=== PATIENT | female | born 1945 | race Caucasian/White ===

== ENCOUNTER → 2016-03-25 | Outpatient (REF) | payer MEDICARE, OTHER ==
[~2016-03-25] MED LIST: /ADVA50050; /CLOT10TR; /LORA10TA PO; /PANT40TA PO; /TIOT18INH INH; ACET-654 PO; ACET50TA PO; ACET65TA OR; ALPR0.25 PO; AMOX500T PO; ASPI1TAB5 PO; ASPI81TA83 OR; ATOR1TAB19 PO; ATRO0.06 INH; AUGM875T27 PO; BACITAB3 PO; CEFT500T; CEFT500T PO; COLA100C PO; COUM2.5T11 PO; COZA100T2 PO; COZA50TA18 OR; DALI1TAB2 PO; DOXY75CA3 PO; FERR324T2 PO; FURO20TA2 PO; HEPA10PFSY IV; IPRA2IN AD; IPRA2IN INH; KLOR1TAB69 PO; LASI20TA PO; LASI40TA PO; LEVA12INH INH; LEVA31IN INH; LEVA500T OR; LEVO750T PO; LIPI10TA PO; LORA10TA2 PO; LOSA50TA20 PO; MAALSUS OR; MAJIC MOUTH WASH PO; MILKSUS PO; MIRA255PW PO; MIRA3350 PO; MUCI600T34 PO; MUPI2OI EXT; NICO21DI26 TD; NICO21DI4 TD; NORV5TAB; NYST50SS SS; PANT40TA2 PO; POTA20VL PO; POTASSIUM PO; PRED10TA PO; PRED10TA2; PRED10TA2 PO; PRED1TAB32 PO; PRED20TA PO; PREV15CA; PROTPAK PO; ROBISYP3; SALI0.9I2 IV; SENO8.6T2 PO; SENO8.6T9 PO; SPIR1CAP INH; SPIRIVA INH; SYMB16INH INH; SYMB80AE INH; SYMBICORT INH; TRAM50TA2 PO; TRAMADOL PO; TRAZO50TA PO; VANC10005 IV; VANC1CAP6 PO; VENL37CA PO; VITAMIN D PO; XANA0.25 OR; XANA0.25 PO; XOPE1.252; XOPE1.252 IN; XOPE1.252 INH; XOPEAER INH; ZITH250T; ZITH250T PO; ZOFR20TA PO; [UNRECOGNIZED DRUG - CODE] INH
[2016-03-25 20:47] LABS: MEAN CORPUSCULAR HEMOGLOBIN 27.1 pg (27.0-33.0); MEAN CORPUSCULAR HGB CONC 31.4 g/dl (32.0-36.5); MEAN CORPUSCULAR VOLUME 86.2 fl (80.0-96.0); RED CELL DISTRIBUTION WIDTH 15.4 % (11.5-14.5); WHITE BLOOD COUNT 7.9 K/mm3 (4.0-10.0)
[2016-03-25 20:49] LABS: ALBUMIN 3.6 GM/DL (3.2-5.2); ALKALINE PHOSPHATASE 92 U/L (45-117); ALT/SGPT 13 U/L (12-78); ANION GAP 4 MEQ/L (8-16); AST/SGOT 15 U/L (15-37); BILIRUBIN,TOTAL 0.7 MG/DL (0.2-1.0); BLOOD UREA NITROGEN 18 MG/DL (7-18); CALCIUM LEVEL 9.2 MG/DL (8.8-10.2); CARBON DIOXIDE LEVEL 35 MEQ/L (21-32); CHLORIDE LEVEL 103 MEQ/L (98-107); CHOLESTEROL LEVEL 211 MG/DL (<200); CREATININE FOR GFR 0.95 MG/DL (0.55-1.02); GLOMERULAR FILTRATION RATE > 60.0 (>45); GLUCOSE, FASTING 84 MG/DL (80-110); POTASSIUM SERUM 4.3 MEQ/L (3.5-5.1); SODIUM LEVEL 142 MEQ/L (136-145); TOTAL PROTEIN 7.6 GM/DL (6.4-8.2); TRIGLYCERIDES LEVEL 81 MG/DL (<150)
== END ==
LOC: M SFHCLERA 16:36
PROVIDERS: ATTEND Physician Assistant
DX: J44.9 Chronic obstructive pulmonary disease, unspecified (principal); I10 Essential (primary) hypertension; E78.5 Hyperlipidemia, unspecified; R63.4 Abnormal weight loss
CPT/HCPCS: 80053; 80061; 84134; 84443; 85027; 93005; G0463

== ENCOUNTER → 2016-09-12 | Outpatient (CLI) | payer MEDICARE, BC, OTHER ==
[~2016-09-12] MED LIST changes: -ACET-654 PO; +ACET1TAB17 PO; +BACITAB PO; -BACITAB3 PO; -COLA100C PO; +COLA100C5 PO; -COUM2.5T11 PO; +COUM2.5T17 PO; +LEVAINH INH; +MUCI600T37 PO; -SENO8.6T2 PO; +SENO8.6T5 PO
--- NOTE | 2016-09-12 17:03 | REP ---
HISTORY: History of malignant neoplasm of the urinary tract. COMPARISON: 12/03/2015 Once again, the lung bustillos are hyperexpanded with basilar fibrotic changes, status quo. The heart is not enlarged. The pleural angles are again seen to be blunted chronically. Bolus emphysematous changes seen particularly in the lung apical regions. Full sized pulmonary arteries status quo. No acute patchy or parenchymal opacities or pleural effusions seen to have developed since the last exam. IMPRESSION: Stable appearing chronic changes. It should be stated that there are multiple lower thoracic vertebral body compression fractures of various grades, unchanged. Signed by Blake Ward DO 09/12/2016 07:09 P
[2016-09-12 20:17] LABS: BASO % 0.4 % (0.0-1.0); EOS # 0.2 K/mm3 (0.0-0.50); EOS % 2.4 % (0.0-3.0); LARGE UNSTAINED CELL # 0.1 K/mm3 (0.0-0.4); LARGE UNSTAINED CELL % 1.9 % (0.0-4.0); LYMPH # 2.1 K/mm3 (1.5-4.5); LYMPH % 29.7 % (24.0-44.0); MEAN CORPUSCULAR HEMOGLOBIN 28.2 pg (27.0-33.0); MEAN CORPUSCULAR HGB CONC 31.9 g/dl (32.0-36.5); MEAN CORPUSCULAR VOLUME 88.3 fl (80.0-96.0); MONO # 0.4 K/mm3 (0.0-0.8); MONO % 5.9 % (0.0-5.0); NEUTROPHILS # 4.3 K/mm3 (1.8-7.7); NEUTROPHILS % 59.7 % (36.0-66.0); PLATELET COUNT, AUTOMATED 370 k/mm3 (150-450); RED CELL DISTRIBUTION WIDTH 14.3 % (11.5-14.5); WHITE BLOOD COUNT 7.2 K/mm3 (4.0-10.0)
[2016-09-12 20:19] LABS: ALBUMIN 3.4 GM/DL (3.2-5.2); ALBUMIN/GLOBULIN RATIO 0.97 (1.00-1.93); BILIRUBIN,TOTAL 0.4 MG/DL (0.2-1.0); CALCIUM LEVEL 9.3 MG/DL (8.8-10.2); GLOMERULAR FILTRATION RATE 58.5 (>45); POTASSIUM SERUM 4.1 MEQ/L (3.5-5.1); TOTAL PROTEIN 6.9 GM/DL (6.4-8.2)
== END ==
LOC: M LRY 15:33
PROVIDERS: ATTEND Urology
DX: C67.1 Malignant neoplasm of dome of bladder (principal)

== ENCOUNTER → 2017-01-20 | Outpatient (CLI) | payer MEDICARE, BC, OTHER ==
--- NOTE | 2017-01-20 12:17 | REP ---
LEFT SHOULDER: Four views. History: Pain in the left shoulder. Prior surgery. Comparison left shoulder radiographs are from November 20/2012. FINDINGS: The patient is status post cervical spine fusion plating. The left glenohumeral and acromioclavicular joints are normally aligned. There is some subcortical cyst formation in the humeral head visible today. This is radiographically new finding. There is diffuse osteopenia. Periarticular soft tissues are unremarkable. No erosive changes seen. No evidence of subluxation. IMPRESSION: Diffuse osteopenia. Subcortical cyst formation in the humeral head. No acute bony abnormality. Signed by Juliocesar Rodriguez MD 01/20/2017 02:44 P
== END ==
LOC: M LRY 11:18
PROVIDERS: ATTEND Physician Assistant
DX: M85.812 Other specified disorders of bone density and structure, left shoulder (principal); M85.412 Solitary bone cyst, left shoulder; Z98.1 Arthrodesis status

== ENCOUNTER → 2017-03-02 | Outpatient (CLI) | payer MEDICARE, BC, OTHER | LOC: M LRY 15:10 | DX: J84.89 Other specified interstitial pulmonary diseases (principal); R50.9 Fever, unspecified | CPT/HCPCS: 71046; 80053 ==

== ENCOUNTER → 2017-03-02 | Outpatient (REF) | payer MEDICARE, OTHER ==
[2017-03-02 20:47] LABS: BASO # 0.1 10^3/uL (0.0-0.2); BASO % 0.3 % (0.0-1.0); EOS # 0.1 10^3/uL (0.0-0.50); EOS % 0.3 % (0.0-3.0); HEMATOCRIT 38.5 % (36.0-47.0); IMMATURE GRANULOCYTE # 0.1 10^3/uL (0-0); IMMATURE GRANULOCYTE % 0.6 % (0-0); LYMPH # 1.6 10^3/uL (1.5-4.5); LYMPH % 6.7 % (24.0-44.0); MEAN CORPUSCULAR HEMOGLOBIN 27.6 pg (27.0-33.0); MEAN CORPUSCULAR HGB CONC 31.2 g/dl (32.0-36.5); MEAN CORPUSCULAR VOLUME 88.5 fl (80.0-96.0); MONO # 1.3 10^3/uL (0.0-0.8); MONO % 5.5 % (0.0-5.0); NEUTROPHILS # 20.2 10^3/uL (1.8-7.7); NEUTROPHILS % 86.6 % (36.0-66.0); PLATELET COUNT, AUTOMATED 355 10^3/uL (150-450); RED BLOOD COUNT 4.35 10^6/uL (4.00-5.40); RED CELL DISTRIBUTION WIDTH 13.8 % (11.5-14.5); WHITE BLOOD COUNT 23.3 10^3/uL (4.0-10.0)
[2017-03-02 21:10] LABS: ALBUMIN 3.3 GM/DL (3.2-5.2); ALBUMIN/GLOBULIN RATIO 0.87 (1.00-1.93); ALKALINE PHOSPHATASE 137 U/L (45-117); ALT/SGPT 17 U/L (12-78); ANION GAP 7 MEQ/L (8-16); AST/SGOT 13 U/L (7-37); BILIRUBIN,TOTAL 0.6 MG/DL (0.2-1.0); BLOOD UREA NITROGEN 17 MG/DL (7-18); CARBON DIOXIDE LEVEL 31 MEQ/L (21-32); CHLORIDE LEVEL 101 MEQ/L (98-107); CREATININE FOR GFR 0.99 MG/DL (0.55-1.02); GLUCOSE, FASTING 105 MG/DL (83-110); POTASSIUM SERUM 4.4 MEQ/L (3.5-5.1); SODIUM LEVEL 139 MEQ/L (136-145); TOTAL PROTEIN 7.1 GM/DL (6.4-8.2)
== END ==
LOC: M SFHCLERA 15:18
DX: R50.9 Fever, unspecified (principal)
CPT/HCPCS: 80053

== ENCOUNTER 2017-06-30 17:35 | Observation (INO) | payer MEDICARE, BC, OTHER ==
[2017-06-30] MEDS: NS 1,000 ML IV ×4 (18:08→21:19)
[2017-06-30] MEDS: NS 500 ML IV ×2 (18:34)
[2017-06-30 18:35] LABS: BASO % 0.4 % (0.0-1.0); EOS # 0.2 10^3/uL (0.0-0.50); EOS % 1.8 % (0.0-3.0); HEMATOCRIT 39.4 % (36.0-47.0); IMMATURE GRANULOCYTE % 0.4 % (0-3.0); LYMPH # 2.6 10^3/uL (1.5-4.5); LYMPH % 30.2 % (24.0-44.0); MEAN CORPUSCULAR HEMOGLOBIN 27.3 pg (27.0-33.0); MEAN CORPUSCULAR HGB CONC 30.5 g/dl (32.0-36.5); MEAN CORPUSCULAR VOLUME 89.5 fl (80.0-96.0); MONO # 0.8 10^3/uL (0.0-0.8); MONO % 9.3 % (0.0-5.0); NEUTROPHILS # 4.9 10^3/uL (1.8-7.7); NEUTROPHILS % 57.9 % (36.0-66.0); PLATELET COUNT, AUTOMATED 246 10^3/uL (150-450); RED CELL DISTRIBUTION WIDTH 14.9 % (11.5-14.5); WHITE BLOOD COUNT 8.5 10^3/uL (4.0-10.0)
[2017-06-30] MEDS: fentaNYL 100 MCG/2 ML INJECTION (J3010) IV ×4 (18:35→20:00)
[2017-06-30 18:54] LABS: LACTIC ACID SEPSIS PROTOCOL 0.9 MMOL/L (0.4-2.0)
[2017-06-30 18:56] LABS: ALBUMIN 3.5 GM/DL (3.2-5.2); ALBUMIN/GLOBULIN RATIO 1.13 (1.00-1.93); ALKALINE PHOSPHATASE 83 U/L (45-117); ALT/SGPT 15 U/L (12-78); ANION GAP 5 MEQ/L (8-16); AST/SGOT 16 U/L (7-37); BILIRUBIN,DIRECT 0.1 MG/DL (0.0-0.2); BILIRUBIN,TOTAL 0.4 MG/DL (0.2-1.0); BLOOD UREA NITROGEN 14 MG/DL (7-18); CALCIUM LEVEL 8.5 MG/DL (8.8-10.2); CARBON DIOXIDE LEVEL 33 MEQ/L (21-32); CHLORIDE LEVEL 102 MEQ/L (98-107); CPK CREATINE PHOSPHOKINASE 56 U/L (26-192); CREATININE FOR GFR 0.88 MG/DL (0.55-1.30); GLOMERULAR FILTRATION RATE > 60.0 (>39); GLUCOSE, FASTING 106 MG/DL (70-100); LIPASE 479 U/L (73-393); POTASSIUM SERUM 4.2 MEQ/L (3.5-5.1); SODIUM LEVEL 140 MEQ/L (136-145); TOTAL PROTEIN 6.6 GM/DL (6.4-8.2); TROPONIN I < 0.02 NG/ML (< 0.10)
[2017-06-30 18:57] LABS: CK-MB VALUE MASS 1.9 NG/ML (<3.6); MB/CK RELATIVE INDEX 3.39 (< OR =4)
[2017-06-30] MEDS: ONDANSETRON 4MG/2ML VIAL (J2405) IV ×4 (19:04→22:17)
[2017-06-30] MEDS: SYMBICORT 160/4.5MCG INHALER 6GM INH ×2 (21:00)
[2017-06-30] MEDS ORDERED: HYDROMORPHONE HCL 0.5 MG/ 0.5 ML SYRINGE (J1170 PER 1) IV ×2 (21:00)
[2017-06-30] MEDS ORDERED: LOSARTAN 50 MG TAB PO ×2 (21:00)
[2017-06-30] MEDS ORDERED: traMADol 50 MG TAB PO ×2 (21:00)
[2017-06-30] MEDS ORDERED: ALPRAZolam 0.25 MG TAB PO ×2 (21:00)
[2017-06-30] MEDS ORDERED: DOCUSATE SODIUM 100 MG CAP PO ×2 (21:00)
[2017-06-30] MEDS ORDERED: HYDROmorphone HCL 1 MG/ML SYRINGE (J1170) As Ordered ×2 (22:54)
[2017-06-30] MEDS: HYDROMORPHONE HCL 0.5 MG/ 0.5 ML SYRINGE (J1170 PER 1) IV ×2 (22:58)
[2017-07-01] MEDS ORDERED: METOCLOPRAMIDE INJ 10MG/2ML VIAL (J2765) As Ordered ×2 (01:45)
[2017-07-01] MEDS: METOCLOPRAMIDE INJ 10MG/2ML VIAL (J2765) IV ×2 (01:50)
[2017-07-01] MEDS ORDERED: HYDROmorphone HCL 1 MG/ML SYRINGE (J1170) As Ordered ×2 (02:05)
[2017-07-01] MEDS: HYDROMORPHONE HCL 0.5 MG/ 0.5 ML SYRINGE (J1170 PER 1) IV ×4 (02:08→12:44)
[2017-07-01 06:30] LABS: BASO # 0.1 10^3/uL (0.0-0.2); BASO % 0.4 % (0.0-1.0); EOS % 0.4 % (0.0-3.0); HEMATOCRIT 37.3 % (36.0-47.0); HEMOGLOBIN 11.2 g/dl (12.0-15.5); IMMATURE GRANULOCYTE % 1.3 % (0-3.0); LYMPH # 2.2 10^3/uL (1.5-4.5); LYMPH % 20.1 % (24.0-44.0); MEAN CORPUSCULAR HEMOGLOBIN 27.3 pg (27.0-33.0); MEAN CORPUSCULAR VOLUME 90.8 fl (80.0-96.0); MONO # 0.9 10^3/uL (0.0-0.8); MONO % 8.3 % (0.0-5.0); NEUTROPHILS # 7.8 10^3/uL (1.8-7.7); NEUTROPHILS % 69.5 % (36.0-66.0); PLATELET COUNT, AUTOMATED 231 10^3/uL (150-450); RED BLOOD COUNT 4.11 10^6/uL (4.00-5.40); WHITE BLOOD COUNT 11.2 10^3/uL (4.0-10.0)
[2017-07-01] MEDS: NS 1,000 ML IV ×6 (06:35→20:13)
[2017-07-01 07:04] LABS: ALBUMIN 2.9 GM/DL (3.2-5.2); ALBUMIN/GLOBULIN RATIO 0.91 (1.00-1.93); ALKALINE PHOSPHATASE 118 U/L (45-117); ALT/SGPT 48 U/L (12-78); ANION GAP 2 MEQ/L (8-16); AST/SGOT 103 U/L (7-37); BILIRUBIN,TOTAL 0.4 MG/DL (0.2-1.0); BLOOD UREA NITROGEN 10 MG/DL (7-18); CARBON DIOXIDE LEVEL 33 MEQ/L (21-32); CHLORIDE LEVEL 104 MEQ/L (98-107); CREATININE FOR GFR 0.81 MG/DL (0.55-1.30); GLOMERULAR FILTRATION RATE > 60.0 (>39); GLUCOSE, FASTING 84 MG/DL (70-100); LIPASE 1280 U/L (73-393); MAGNESIUM LEVEL 1.9 MG/DL (1.8-2.4); POTASSIUM SERUM 4.6 MEQ/L (3.5-5.1); SODIUM LEVEL 139 MEQ/L (136-145); TOTAL PROTEIN 6.1 GM/DL (6.4-8.2)
[2017-07-01] MEDS ORDERED: HYDROmorphone HCL 1 MG/ML SYRINGE (J1170) IV ×2 (07:24)
[2017-07-01] MEDS: HYDROmorphone HCL 1 MG/ML SYRINGE (J1170) IV ×2 (07:29)
[2017-07-01] MEDS: NS 500 ML IV ×2 (08:00)
[2017-07-01] MEDS: SYMBICORT 160/4.5MCG INHALER 6GM INH ×4 (08:07→19:47)
[2017-07-01] MEDS: TIOTROPIUM INHALER/CAPSULE (SPIRIVA) INH ×2 (08:07)
[2017-07-01 08:11] LABS: NT-PRO BNP 1500 PG/ML (<125)
[2017-07-01 08:41] LABS: INR 0.95; PROTHROMBIN TIME 12.8 SECONDS (12.4-14.5)
[2017-07-01 08:43] LABS: LACTIC ACID SEPSIS PROTOCOL 0.7 MMOL/L (0.4-2.0)
[2017-07-01] MEDS: ENOXAPARIN 40 MG/0.4 ML SYRINGE (J1650) SC ×2 (09:00)
[2017-07-01] MEDS: LORATADINE 10 MG TAB PO ×2 (09:00)
[2017-07-01] MEDS: PANTOPRAZOLE 40MG INJ (PROTONIX) (C9113) IV ×4 (09:00→20:13)
[2017-07-01] MEDS: ONDANSETRON 4MG/2ML VIAL (J2405) IV ×2 (12:40)
[2017-07-01] MEDS ORDERED: HYDROMORPHONE HCL 0.5 MG/ 0.5 ML SYRINGE (J1170 PER 1) IV ×2 (12:45)
[2017-07-01] MEDS: NORCO, ANEXSIA 5/325MG TABLET (HYDROcodone/ACETAMINOPHEN) PO ×2 (15:36)
[2017-07-02] MEDS: NORCO, ANEXSIA 5/325MG TABLET (HYDROcodone/ACETAMINOPHEN) PO ×8 (02:10→18:13)
[2017-07-02] MEDS: HYDROMORPHONE HCL 0.5 MG/ 0.5 ML SYRINGE (J1170 PER 1) IV ×4 (02:19→07:28)
[2017-07-02] MEDS: METOCLOPRAMIDE INJ 10MG/2ML VIAL (J2765) IV ×8 (02:25→19:41)
[2017-07-02] MEDS: ALBUTEROL 90 MCG/ACT 8GM HFA INHALER INH ×2 (03:12)
[2017-07-02] MEDS: ACETAMINOPHEN TAB 650MG DOSE (2X325MG) PO ×2 (03:47)
[2017-07-02 06:28] LABS: BASO % 0.2 % (0.0-1.0); EOS % 0.4 % (0.0-3.0); HEMATOCRIT 33.3 % (36.0-47.0); HEMOGLOBIN 10.1 g/dl (12.0-15.5); IMMATURE GRANULOCYTE % 1.6 % (0-3.0); MEAN CORPUSCULAR HEMOGLOBIN 27.7 pg (27.0-33.0); MEAN CORPUSCULAR HGB CONC 30.3 g/dl (32.0-36.5); MEAN CORPUSCULAR VOLUME 91.5 fl (80.0-96.0); MONO # 0.7 10^3/uL (0.0-0.8); MONO % 8.3 % (0.0-5.0); NEUTROPHILS # 5.4 10^3/uL (1.8-7.7); NEUTROPHILS % 65.5 % (36.0-66.0); PLATELET COUNT, AUTOMATED 200 10^3/uL (150-450); RED BLOOD COUNT 3.64 10^6/uL (4.00-5.40); WHITE BLOOD COUNT 8.3 10^3/uL (4.0-10.0)
[2017-07-02 06:42] LABS: ALBUMIN 2.5 GM/DL (3.2-5.2); ALBUMIN/GLOBULIN RATIO 0.83 (1.00-1.93); ALKALINE PHOSPHATASE 121 U/L (45-117); ALT/SGPT 31 U/L (12-78); ANION GAP 8 MEQ/L (8-16); AST/SGOT 41 U/L (7-37); BILIRUBIN,TOTAL 0.4 MG/DL (0.2-1.0); BLOOD UREA NITROGEN 10 MG/DL (7-18); CALCIUM LEVEL 7.9 MG/DL (8.8-10.2); CARBON DIOXIDE LEVEL 28 MEQ/L (21-32); CHLORIDE LEVEL 106 MEQ/L (98-107); CREATININE FOR GFR 0.73 MG/DL (0.55-1.30); GLOMERULAR FILTRATION RATE > 60.0 (>39); GLUCOSE, FASTING 56 MG/DL (70-100); LIPASE 56 U/L (73-393); MAGNESIUM LEVEL 1.7 MG/DL (1.8-2.4); POTASSIUM SERUM 4.2 MEQ/L (3.5-5.1); SODIUM LEVEL 142 MEQ/L (136-145); TOTAL PROTEIN 5.5 GM/DL (6.4-8.2)
[2017-07-02] MEDS: LORATADINE 10 MG TAB PO ×2 (07:50)
[2017-07-02] MEDS: ENOXAPARIN 40 MG/0.4 ML SYRINGE (J1650) SC ×2 (07:50)
[2017-07-02] MEDS: PANTOPRAZOLE 40MG INJ (PROTONIX) (C9113) IV ×4 (07:50→20:11)
[2017-07-02] MEDS: MAG SULF 1GM/100ML (MAG RUN) 1 GM in APPROPRIATE DILUENT 1 EA IV (07:50)
[2017-07-02] MEDS: ONDANSETRON 4MG/2ML VIAL (J2405) IV ×2 (07:50)
[2017-07-02] MEDS: SYMBICORT 160/4.5MCG INHALER 6GM INH ×4 (07:54→20:43)
[2017-07-02 09:11] LABS: BEDSIDE GLUCOSE 95 MG/DL (83-110)
[2017-07-02] MEDS ORDERED: ACETAMINOPHEN 500 MG TAB PO ×2 (11:15)
[2017-07-02] MEDS: KETOROLAC 30 MG/ML VIAL (J1885) IV ×4 (11:45→20:13)
[2017-07-02] MEDS: TIOTROPIUM INHALER/CAPSULE (SPIRIVA) INH ×2 (13:59)
[2017-07-02] MEDS: diphenhydrAMINE INJ 50MG/ML VIAL (J1200) IV ×2 (15:40)
[2017-07-02] MEDS: NS 1,000 ML IV ×2 (18:15)
[2017-07-03] MEDS: KETOROLAC 30 MG/ML VIAL (J1885) IV ×6 (03:31→19:40)
[2017-07-03] MEDS: METOCLOPRAMIDE INJ 10MG/2ML VIAL (J2765) IV ×8 (03:31→20:54)
[2017-07-03] MEDS: NORCO, ANEXSIA 5/325MG TABLET (HYDROcodone/ACETAMINOPHEN) PO ×6 (04:51→20:54)
[2017-07-03 06:20] LABS: BASO % 0.5 % (0.0-1.0); EOS # 0.2 10^3/uL (0.0-0.50); EOS % 3.9 % (0.0-3.0); HEMATOCRIT 32.4 % (36.0-47.0); IMMATURE GRANULOCYTE % 0.7 % (0-3.0); LYMPH # 1.6 10^3/uL (1.5-4.5); LYMPH % 26.1 % (24.0-44.0); MEAN CORPUSCULAR HEMOGLOBIN 27.5 pg (27.0-33.0); MEAN CORPUSCULAR HGB CONC 30.9 g/dl (32.0-36.5); MEAN CORPUSCULAR VOLUME 89.3 fl (80.0-96.0); MONO # 0.7 10^3/uL (0.0-0.8); MONO % 11.7 % (0.0-5.0); NEUTROPHILS # 3.5 10^3/uL (1.8-7.7); NEUTROPHILS % 57.1 % (36.0-66.0); PLATELET COUNT, AUTOMATED 196 10^3/uL (150-450); RED BLOOD COUNT 3.63 10^6/uL (4.00-5.40); WHITE BLOOD COUNT 6.1 10^3/uL (4.0-10.0)
[2017-07-03 06:45] LABS: ALBUMIN 2.3 GM/DL (3.2-5.2); ALBUMIN/GLOBULIN RATIO 0.77 (1.00-1.93); ALKALINE PHOSPHATASE 110 U/L (45-117); ALT/SGPT 26 U/L (12-78); ANION GAP 2 MEQ/L (8-16); AST/SGOT 22 U/L (7-37); BILIRUBIN,TOTAL 0.6 MG/DL (0.2-1.0); BLOOD UREA NITROGEN 7 MG/DL (7-18); CARBON DIOXIDE LEVEL 33 MEQ/L (21-32); CHLORIDE LEVEL 109 MEQ/L (98-107); CREATININE FOR GFR 0.82 MG/DL (0.55-1.30); GLOMERULAR FILTRATION RATE > 60.0 (>39); GLUCOSE, FASTING 82 MG/DL (70-100); LIPASE 70 U/L (73-393); MAGNESIUM LEVEL 1.7 MG/DL (1.8-2.4); POTASSIUM SERUM 3.9 MEQ/L (3.5-5.1); SODIUM LEVEL 144 MEQ/L (136-145); TOTAL PROTEIN 5.3 GM/DL (6.4-8.2)
[2017-07-03] MEDS: NS 1,000 ML IV ×2 (07:30)
[2017-07-03] MEDS: MAG SULF 1GM/100ML (MAG RUN) 1 GM in APPROPRIATE DILUENT 1 EA IV ×2 (07:32→08:47)
[2017-07-03] MEDS: SYMBICORT 160/4.5MCG INHALER 6GM INH ×4 (08:11→20:42)
[2017-07-03] MEDS: TIOTROPIUM INHALER/CAPSULE (SPIRIVA) INH ×2 (08:11)
[2017-07-03] MEDS: ENOXAPARIN 40 MG/0.4 ML SYRINGE (J1650) SC ×2 (08:48)
[2017-07-03] MEDS: LORATADINE 10 MG TAB PO ×2 (08:48)
[2017-07-03] MEDS: PANTOPRAZOLE 40MG INJ (PROTONIX) (C9113) IV ×4 (08:49→20:54)
[2017-07-03] MEDS: predniSONE 20 MG TAB PO ×2 (12:17)
[2017-07-03] MEDS: AMITRIPTYLINE 25 MG TAB PO ×2 (20:54)
[2017-07-04 06:10] LABS: BASO % 0.2 % (0.0-1.0); HEMATOCRIT 32.9 % (36.0-47.0); HEMOGLOBIN 10.3 g/dl (12.0-15.5); IMMATURE GRANULOCYTE % 0.7 % (0-3.0); LYMPH # 1.3 10^3/uL (1.5-4.5); LYMPH % 32.7 % (24.0-44.0); MEAN CORPUSCULAR HEMOGLOBIN 27.3 pg (27.0-33.0); MEAN CORPUSCULAR HGB CONC 31.3 g/dl (32.0-36.5); MEAN CORPUSCULAR VOLUME 87.3 fl (80.0-96.0); MONO # 0.4 10^3/uL (0.0-0.8); MONO % 10.1 % (0.0-5.0); NEUTROPHILS # 2.3 10^3/uL (1.8-7.7); NEUTROPHILS % 56.3 % (36.0-66.0); PLATELET COUNT, AUTOMATED 203 10^3/uL (150-450); RED BLOOD COUNT 3.77 10^6/uL (4.00-5.40); RED CELL DISTRIBUTION WIDTH 14.8 % (11.5-14.5)
[2017-07-04 06:35] LABS: ALBUMIN 2.6 GM/DL (3.2-5.2); ALBUMIN/GLOBULIN RATIO 0.81 (1.00-1.93); ALKALINE PHOSPHATASE 116 U/L (45-117); ALT/SGPT 23 U/L (12-78); ANION GAP 3 MEQ/L (8-16); AST/SGOT 17 U/L (7-37); BILIRUBIN,TOTAL 0.4 MG/DL (0.2-1.0); BLOOD UREA NITROGEN 6 MG/DL (7-18); CALCIUM LEVEL 8.2 MG/DL (8.8-10.2); CARBON DIOXIDE LEVEL 36 MEQ/L (21-32); CHLORIDE LEVEL 104 MEQ/L (98-107); CREATININE FOR GFR 0.74 MG/DL (0.55-1.30); GLOMERULAR FILTRATION RATE > 60.0 (>39); GLUCOSE, FASTING 101 MG/DL (70-100); LIPASE 54 U/L (73-393); POTASSIUM SERUM 4.2 MEQ/L (3.5-5.1); SODIUM LEVEL 143 MEQ/L (136-145); TOTAL PROTEIN 5.8 GM/DL (6.4-8.2)
[2017-07-04] MEDS: ALBUTEROL 90 MCG/ACT 8GM HFA INHALER INH ×2 (08:04)
[2017-07-04] MEDS: TIOTROPIUM INHALER/CAPSULE (SPIRIVA) INH ×2 (08:04)
[2017-07-04] MEDS: SYMBICORT 160/4.5MCG INHALER 6GM INH ×2 (08:04)
[2017-07-04] MEDS: NORCO, ANEXSIA 5/325MG TABLET (HYDROcodone/ACETAMINOPHEN) PO ×2 (08:31)
[2017-07-04] MEDS: predniSONE 20 MG TAB PO ×2 (08:31)
[2017-07-04] MEDS: ENOXAPARIN 40 MG/0.4 ML SYRINGE (J1650) SC ×2 (08:32)
[2017-07-04] MEDS: LORATADINE 10 MG TAB PO ×2 (08:32)
[2017-07-04] MEDS: PANTOPRAZOLE 40MG INJ (PROTONIX) (C9113) IV ×2 (09:00)
== END 2017-07-04 13:32 | disposition home or self-care (01) ==
LOC: M MSPAV 07-01 12:05 → M ED 17:35 → M ED INP 20:35
DX: K85.90 Acute pancreatitis without necrosis or infection, unspecified (principal); R11.2 Nausea with vomiting, unspecified; R06.02 Shortness of breath; J44.9 Chronic obstructive pulmonary disease, unspecified; I11.0 Hypertensive heart disease with heart failure; I50.31 Acute diastolic (congestive) heart failure; F41.9 Anxiety disorder, unspecified; F32.9 Major depressive disorder, single episode, unspecified; E55.9 Vitamin D deficiency, unspecified; Z85.51 Personal history of malignant neoplasm of bladder; Z85.528 Personal history of other malignant neoplasm of kidney; Z98.1 Arthrodesis status; Z79.51 Long term (current) use of inhaled steroids; Z87.891 Personal history of nicotine dependence; E78.4 Other hyperlipidemia; Z79.899 Other long term (current) drug therapy
CPT/HCPCS: C9113

== ENCOUNTER → 2017-07-07 | Outpatient (REF) | payer MEDICARE, OTHER ==
[2017-07-07 17:21] LABS: ALBUMIN/GLOBULIN RATIO 0.88 (1.00-1.93); ALKALINE PHOSPHATASE 105 U/L (45-117); ALT/SGPT 21 U/L (12-78); ANION GAP 7 MEQ/L (8-16); AST/SGOT 9 U/L (7-37); BILIRUBIN,TOTAL 0.8 MG/DL (0.2-1.0); BLOOD UREA NITROGEN 16 MG/DL (7-18); CALCIUM LEVEL 8.6 MG/DL (8.8-10.2); CARBON DIOXIDE LEVEL 40 MEQ/L (21-32); CHLORIDE LEVEL 92 MEQ/L (98-107); CREATININE FOR GFR 0.93 MG/DL (0.55-1.30); GLOMERULAR FILTRATION RATE > 60.0 (>39); GLUCOSE, FASTING 95 MG/DL (70-100); SODIUM LEVEL 139 MEQ/L (136-145); TOTAL PROTEIN 6.4 GM/DL (6.4-8.2)
[2017-07-07 17:39] LABS: BASO % 0.1 % (0.0-1.0); HEMATOCRIT 39.6 % (36.0-47.0); HEMOGLOBIN 12.3 g/dl (12.0-15.5); IMMATURE GRANULOCYTE % 0.8 % (0-3.0); LYMPH # 2.5 10^3/uL (1.5-4.5); LYMPH % 9.3 % (24.0-44.0); MEAN CORPUSCULAR HEMOGLOBIN 27.2 pg (27.0-33.0); MEAN CORPUSCULAR HGB CONC 31.1 g/dl (32.0-36.5); MEAN CORPUSCULAR VOLUME 87.4 fl (80.0-96.0); MONO # 1.3 10^3/uL (0.0-0.8); MONO % 4.8 % (0.0-5.0); NEUTROPHILS # 22.9 10^3/uL (1.8-7.7); PLATELET COUNT, AUTOMATED 297 10^3/uL (150-450); RED BLOOD COUNT 4.53 10^6/uL (4.00-5.40); RED CELL DISTRIBUTION WIDTH 15.4 % (11.5-14.5); WHITE BLOOD COUNT 26.9 10^3/uL (4.0-10.0)
== END ==
LOC: M SFHCLERA 11:21
DX: J44.1 Chronic obstructive pulmonary disease with (acute) exacerbation (principal); E86.0 Dehydration
CPT/HCPCS: 80053

== ENCOUNTER 2017-09-22 11:10 | Inpatient (IN) | payer MEDICARE, BC, OTHER ==
[2017-09-22] MEDS: IPRATROPIUM 0.5MG/ALBUTEROL 2.5MG INH SOL UD 3ML (DUONEB)(J7620) NEB ×2 (13:01→20:00)
[2017-09-22 13:05] LABS: ABG BASE EXCESS 11.7 (-2.0-2.0); ABG HCO3 41.6 MEQ/L (22.0-26.0); ABG O2 SATURATION 99.3 % (95.0-99.0); ABG PARTIAL PRESSURE O2 157.4 mmHg (75.0-100.0); ABG STANDARD HCO3 35.5 MEQ/L (22.0-26.0); ABG TOTAL CO2 44.2 MEQ/L (23.0-31.0)
[2017-09-22 13:09] LABS: ABG PARTIAL PRESSURE CO2 86.4 mmHg (35.0-45.0)
[2017-09-22] MEDS: NS 1,000 ML IV (13:39)
[2017-09-22] MEDS: methylPREDNISolone INJ 125 MG/2 ML VIAL (J2930) IV ×2 (13:39→22:44)
[2017-09-22] MEDS: ASPIRIN 81 MG CHEW TABLET PO (13:39)
[2017-09-22 13:50] LABS: EOS % 0.5 % (0.0-3.0); HEMATOCRIT 40.7 % (36.0-47.0); HEMOGLOBIN 12.1 g/dl (12.0-15.5); IMMATURE GRANULOCYTE % 0.2 % (0-3.0); LYMPH # 1.2 10^3/uL (1.5-4.5); LYMPH % 27.4 % (24.0-44.0); MEAN CORPUSCULAR HEMOGLOBIN 26.7 pg (27.0-33.0); MEAN CORPUSCULAR HGB CONC 29.7 g/dl (32.0-36.5); MEAN CORPUSCULAR VOLUME 89.6 fl (80.0-96.0); MONO # 0.3 10^3/uL (0.0-0.8); MONO % 6.7 % (0.0-5.0); NEUTROPHILS # 2.8 10^3/uL (1.8-7.7); NEUTROPHILS % 65.2 % (36.0-66.0); PLATELET COUNT, AUTOMATED 296 10^3/uL (150-450); RED BLOOD COUNT 4.54 10^6/uL (4.00-5.40); RED CELL DISTRIBUTION WIDTH 14.2 % (11.5-14.5); WHITE BLOOD COUNT 4.4 10^3/uL (4.0-10.0)
[2017-09-22 14:02] LABS: INR 0.97
[2017-09-22 14:15] LABS: LACTIC ACID SEPSIS PROTOCOL 1.4 MMOL/L (0.4-2.0)
[2017-09-22 14:21] LABS: ALBUMIN 3.3 GM/DL (3.2-5.2); ALBUMIN/GLOBULIN RATIO 0.89 (1.00-1.93); ALKALINE PHOSPHATASE 75 U/L (45-117); ALT/SGPT 12 U/L (12-78); ANION GAP 5 MEQ/L (8-16); AST/SGOT 11 U/L (7-37); BILIRUBIN,DIRECT 0.1 MG/DL (0.0-0.2); BILIRUBIN,TOTAL 0.4 MG/DL (0.2-1.0); BLOOD UREA NITROGEN 15 MG/DL (7-18); CALCIUM LEVEL 9.2 MG/DL (8.8-10.2); CARBON DIOXIDE LEVEL 41 MEQ/L (21-32); CHLORIDE LEVEL 96 MEQ/L (98-107); CK-MB VALUE MASS 1.3 NG/ML (<3.6); CPK CREATINE PHOSPHOKINASE 32 U/L (26-192); GLOMERULAR FILTRATION RATE 58.4 (>39); GLUCOSE, FASTING 121 MG/DL (70-100); MB/CK RELATIVE INDEX 4.06 (< OR =4); NT-PRO BNP 597 PG/ML (<125); POTASSIUM SERUM 4.9 MEQ/L (3.5-5.1); SODIUM LEVEL 142 MEQ/L (136-145); TROPONIN I < 0.02 NG/ML (< 0.10)
[2017-09-22] MEDS ORDERED: ALPRAZolam 0.25 MG TAB PO (15:15)
[2017-09-22] MEDS ORDERED: METOCLOPRAMIDE 10 MG TAB PO (15:15)
[2017-09-22] MEDS ORDERED: traMADol 50 MG TAB PO (15:15)
[2017-09-22] MEDS ORDERED: ISOVUE-370 76% 100ML VIAL (Q9967) As Ordered (15:23)
[2017-09-22] MEDS ORDERED: ACETAMINOPHEN TAB 650MG DOSE (2X325MG) PO (15:45)
[2017-09-22] MEDS ORDERED: ONDANSETRON 4MG/2ML VIAL (J2405) IV (15:45)
[2017-09-22 16:09] LABS: ABG BASE EXCESS 9.9 (-2.0-2.0); ABG HCO3 38.3 MEQ/L (22.0-26.0); ABG O2 SATURATION 93.6 % (95.0-99.0); ABG PARTIAL PRESSURE O2 68.3 mmHg (75.0-100.0); ABG STANDARD HCO3 33.6 MEQ/L (22.0-26.0); ABG TOTAL CO2 40.5 MEQ/L (23.0-31.0); ABG pH (ARTERIAL) 7.342 UNITS (7.350-7.450)
[2017-09-22 16:12] LABS: ABG PARTIAL PRESSURE CO2 72.3 mmHg (35.0-45.0)
[2017-09-22] MEDS: AZITHROMYCIN INJ 500 MG, VIAL MATE ADAPTER 1 EACH in D5W 250 ML IV (17:08)
[2017-09-22] MEDS: PANTOPRAZOLE 40MG TAB (PROTONIX) PO (17:08)
[2017-09-22] MEDS: LACTOBACILLUS ACIDOPHILUS CAP (BACID) PO (17:08)
[2017-09-22 19:32] LABS: CK-MB VALUE MASS 1.3 NG/ML (<3.6); CPK CREATINE PHOSPHOKINASE 34 U/L (26-192); MB/CK RELATIVE INDEX 3.82 (< OR =4); TROPONIN I < 0.02 NG/ML (< 0.10)
[2017-09-22] MEDS: cefTRIAXone SOD 2 GM in D5W MINI-BAG PLUS 50 ML IV (19:49)
[2017-09-22] MEDS: SENOKOT S TAB PO (19:50)
[2017-09-22] MEDS: AMITRIPTYLINE 50 MG TAB PO (19:50)
[2017-09-22] MEDS: guaiFENesin ER 600 MG TAB PO (19:50)
[2017-09-22] MEDS: SYMBICORT 160/4.5MCG INHALER 6GM INH (20:20)
[2017-09-22] MEDS ORDERED: SYMBICORT 160/4.5MCG INHALER 6GM INH (21:00)
[2017-09-22] MEDS: HEPARIN SOD (PORCINE) 5000 UNITS/ML VIAL SC (22:45)
[2017-09-23 01:39] LABS: CPK CREATINE PHOSPHOKINASE 28 U/L (26-192); TROPONIN I < 0.02 NG/ML (< 0.10)
[2017-09-23 01:40] LABS: CK-MB VALUE MASS < 1.0 NG/ML (<3.6); MB/CK RELATIVE INDEX 3.57 (< OR =4)
[2017-09-23] MEDS: IPRATROPIUM 0.5MG/ALBUTEROL 2.5MG INH SOL UD 3ML (DUONEB)(J7620) NEB ×5 (01:42→19:50)
[2017-09-23 04:33] LABS: HEMATOCRIT 37.8 % (36.0-47.0); HEMOGLOBIN 11.6 g/dl (12.0-15.5); MEAN CORPUSCULAR HEMOGLOBIN 27.1 pg (27.0-33.0); MEAN CORPUSCULAR HGB CONC 30.7 g/dl (32.0-36.5); MEAN CORPUSCULAR VOLUME 88.3 fl (80.0-96.0); PLATELET COUNT, AUTOMATED 255 10^3/uL (150-450); RED BLOOD COUNT 4.28 10^6/uL (4.00-5.40); RED CELL DISTRIBUTION WIDTH 14.1 % (11.5-14.5)
[2017-09-23 04:49] LABS: ANION GAP 2 MEQ/L (8-16); BLOOD UREA NITROGEN 20 MG/DL (7-18); C REACTIVE PROTEIN QUANTITATIV 1.46 MG/DL (0.00-0.30); CALCIUM LEVEL 8.8 MG/DL (8.8-10.2); CARBON DIOXIDE LEVEL 40 MEQ/L (21-32); CHLORIDE LEVEL 98 MEQ/L (98-107); CREATININE FOR GFR 0.88 MG/DL (0.55-1.30); GLOMERULAR FILTRATION RATE > 60.0 (>39); GLUCOSE, FASTING 131 MG/DL (70-100); POTASSIUM SERUM 4.5 MEQ/L (3.5-5.1); SODIUM LEVEL 140 MEQ/L (136-145)
[2017-09-23] MEDS: methylPREDNISolone INJ 125 MG/2 ML VIAL (J2930) IV (06:33)
[2017-09-23] MEDS: HEPARIN SOD (PORCINE) 5000 UNITS/ML VIAL SC ×3 (06:35→20:30)
[2017-09-23] MEDS: TIOTROPIUM INHALER/CAPSULE (SPIRIVA) INH (08:25)
[2017-09-23] MEDS: SYMBICORT 160/4.5MCG INHALER 6GM INH ×2 (08:26→20:02)
[2017-09-23] MEDS: LACTOBACILLUS ACIDOPHILUS CAP (BACID) PO ×3 (08:32→18:15)
[2017-09-23] MEDS: LOSARTAN 50 MG TAB PO (08:32)
[2017-09-23] MEDS: predniSONE 20 MG TAB PO (08:33)
[2017-09-23] MEDS: SENOKOT S TAB PO ×2 (08:33→20:30)
[2017-09-23] MEDS: PANTOPRAZOLE 40MG TAB (PROTONIX) PO (08:33)
[2017-09-23] MEDS: guaiFENesin ER 600 MG TAB PO ×2 (08:33→20:30)
[2017-09-23] MEDS ORDERED: SLF 3 ML SYR IV (11:45)
[2017-09-23] MEDS: AZITHROMYCIN INJ 500 MG, VIAL MATE ADAPTER 1 EACH in D5W 250 ML IV (17:07)
[2017-09-23] MEDS: SLF 3 ML SYR IV ×2 (17:07→21:32)
[2017-09-23] MEDS: cefTRIAXone SOD 2 GM in D5W MINI-BAG PLUS 50 ML IV (18:39)
[2017-09-23] MEDS: AMITRIPTYLINE 50 MG TAB PO (21:31)
[2017-09-24] MEDS: IPRATROPIUM 0.5MG/ALBUTEROL 2.5MG INH SOL UD 3ML (DUONEB)(J7620) NEB ×2 (02:00→07:34)
[2017-09-24] MEDS: SLF 3 ML SYR IV (06:12)
[2017-09-24] MEDS: HEPARIN SOD (PORCINE) 5000 UNITS/ML VIAL SC (06:12)
[2017-09-24 07:01] LABS: HEMOGLOBIN 10.9 g/dl (12.0-15.5); MEAN CORPUSCULAR HGB CONC 30.3 g/dl (32.0-36.5); MEAN CORPUSCULAR VOLUME 89.1 fl (80.0-96.0); PLATELET COUNT, AUTOMATED 278 10^3/uL (150-450); RED BLOOD COUNT 4.04 10^6/uL (4.00-5.40); RED CELL DISTRIBUTION WIDTH 14.3 % (11.5-14.5)
[2017-09-24 07:18] LABS: ANION GAP 3 MEQ/L (8-16); BLOOD UREA NITROGEN 25 MG/DL (7-18); CALCIUM LEVEL 8.7 MG/DL (8.8-10.2); CARBON DIOXIDE LEVEL 40 MEQ/L (21-32); CHLORIDE LEVEL 99 MEQ/L (98-107); CREATININE FOR GFR 0.95 MG/DL (0.55-1.30); GLOMERULAR FILTRATION RATE > 60.0 (>39); GLUCOSE, FASTING 92 MG/DL (70-100); MAGNESIUM LEVEL 2.2 MG/DL (1.8-2.4); POTASSIUM SERUM 3.6 MEQ/L (3.5-5.1); SODIUM LEVEL 142 MEQ/L (136-145)
[2017-09-24] MEDS: TIOTROPIUM INHALER/CAPSULE (SPIRIVA) INH (07:33)
[2017-09-24] MEDS: SYMBICORT 160/4.5MCG INHALER 6GM INH (07:34)
[2017-09-24] MEDS: LACTOBACILLUS ACIDOPHILUS CAP (BACID) PO (08:12)
[2017-09-24] MEDS: LOSARTAN 50 MG TAB PO (08:12)
[2017-09-24] MEDS: SENOKOT S TAB PO (08:12)
[2017-09-24] MEDS: predniSONE 20 MG TAB PO (08:12)
[2017-09-24] MEDS: guaiFENesin ER 600 MG TAB PO (08:12)
[2017-09-24] MEDS: PANTOPRAZOLE 40MG TAB (PROTONIX) PO (08:12)
== END 2017-09-24 11:45 | disposition home or self-care (01) | DRG 190 ==
LOC: M MS5PR 09-23 12:57 → M ED 11:10 → M ED INP 15:32 → M ICU 17:34
DX: J44.1 Chronic obstructive pulmonary disease with (acute) exacerbation (principal); J96.22 Acute and chronic respiratory failure with hypercapnia; J96.11 Chronic respiratory failure with hypoxia; I50.30 Unspecified diastolic (congestive) heart failure; I11.0 Hypertensive heart disease with heart failure; E78.5 Hyperlipidemia, unspecified; F32.9 Major depressive disorder, single episode, unspecified; F41.9 Anxiety disorder, unspecified; M54.2 Cervicalgia; J30.9 Allergic rhinitis, unspecified; E55.9 Vitamin D deficiency, unspecified; K21.9 Gastro-esophageal reflux disease without esophagitis; Z90.5 Acquired absence of kidney; Z85.51 Personal history of malignant neoplasm of bladder; Z88.5 Allergy status to narcotic agent; Z88.1 Allergy status to other antibiotic agents; Z91.048 Other nonmedicinal substance allergy status; Z88.8 Allergy status to other drugs, medicaments and biological substances; Z90.49 Acquired absence of other specified parts of digestive tract; Z98.51 Tubal ligation status; Z90.710 Acquired absence of both cervix and uterus; Z98.1 Arthrodesis status; Z98.41 Cataract extraction status, right eye; Z99.81 Dependence on supplemental oxygen; Z98.42 Cataract extraction status, left eye; Z87.891 Personal history of nicotine dependence; Z79.891 Long term (current) use of opiate analgesic; Z79.899 Other long term (current) drug therapy

== ENCOUNTER 2018-01-23 17:45 | Emergency (ER) | payer MEDICARE, BC, OTHER ==
[2018-01-23 19:03] LABS: BASO % 0.4 % (0.0-1.0); EOS % 0.1 % (0.0-3.0); HEMATOCRIT 38.4 % (36.0-47.0); HEMOGLOBIN 11.4 g/dl (12.0-15.5); IMMATURE GRANULOCYTE % 0.4 % (0-3.0); LYMPH # 1.1 10^3/uL (1.5-4.5); LYMPH % 14.3 % (24.0-44.0); MEAN CORPUSCULAR HEMOGLOBIN 27.7 pg (27.0-33.0); MEAN CORPUSCULAR HGB CONC 29.7 g/dl (32.0-36.5); MEAN CORPUSCULAR VOLUME 93.4 fl (80.0-96.0); MONO # 0.3 10^3/uL (0.0-0.8); MONO % 3.7 % (0.0-5.0); NEUTROPHILS # 6.2 10^3/uL (1.8-7.7); NEUTROPHILS % 81.1 % (36.0-66.0); PLATELET COUNT, AUTOMATED 293 10^3/uL (150-450); RED BLOOD COUNT 4.11 10^6/uL (4.00-5.40); WHITE BLOOD COUNT 7.6 10^3/uL (4.0-10.0)
[2018-01-23] MEDS: ONDANSETRON 4MG/2ML VIAL (J2405) IV (19:17)
[2018-01-23 19:29] LABS: ALBUMIN 3.3 GM/DL (3.2-5.2); ALKALINE PHOSPHATASE 91 U/L (45-117); ALT/SGPT 11 U/L (12-78); ANION GAP 2 MEQ/L (8-16); AST/SGOT 10 U/L (7-37); BILIRUBIN,DIRECT < 0.1 MG/DL (0.0-0.2); BILIRUBIN,TOTAL 0.2 MG/DL (0.2-1.0); BLOOD UREA NITROGEN 19 MG/DL (7-18); CALCIUM LEVEL 7.9 MG/DL (8.8-10.2); CARBON DIOXIDE LEVEL 38 MEQ/L (21-32); CHLORIDE LEVEL 103 MEQ/L (98-107); CREATININE FOR GFR 1.15 MG/DL (0.55-1.30); GLOMERULAR FILTRATION RATE 49.5 (>39); GLUCOSE, FASTING 119 MG/DL (70-100); LIPASE 111 U/L (73-393); POTASSIUM SERUM 5.2 MEQ/L (3.5-5.1); SODIUM LEVEL 143 MEQ/L (136-145); THYROID STIMULATING HORMONE 0.213 uIU/ML (0.358-3.740); TOTAL PROTEIN 6.3 GM/DL (6.4-8.2)
[2018-01-23] MEDS ORDERED: ISOVUE-370 76% 100ML VIAL (Q9967) As Ordered (20:16)
[2018-01-23] MEDS: NS 1,000 ML IV (21:32)
[2018-01-23 21:43] LABS: KETONE, URINE AUTO RFX NEGATIVE (NEGATIVE); LEUKOCYTE ESTERASE UR AUTO RFX NEGATIVE (NEGATIVE); NITRITE, URINE AUTO RFX NEGATIVE (NEGATIVE); RBC, URINE AUTO RFX 4 /HPF (0-3); SPECIFIC GRAVITY UR AUTO RFX 1.051 (1.002-1.035); SQUAM EPITHELIAL CELL UR AURFX 0 /HPF (0-6); WBC, URINE AUTO RFX 1 /HPF (0-3)
[2018-01-23 23:26] LABS: MAGNESIUM LEVEL 2.1 MG/DL (1.8-2.4)
[2018-01-23] MEDS: metroNIDAZOLE (FLAGYL) 500 MG TAB PO (23:26)
[2018-01-23] MEDS: LevoFLOXacin 500 MG TABLET PO (23:26)
== END 2018-01-23 23:59 | disposition home or self-care (01) ==
LOC: M ED 17:45
DX: K52.9 Noninfective gastroenteritis and colitis, unspecified (principal); J44.9 Chronic obstructive pulmonary disease, unspecified; R00.0 Tachycardia, unspecified; R94.31 Abnormal electrocardiogram [ECG] [EKG]; M87.051 Idiopathic aseptic necrosis of right femur; K57.30 Diverticulosis of large intestine without perforation or abscess without bleeding; J43.9 Emphysema, unspecified; I10 Essential (primary) hypertension; K21.9 Gastro-esophageal reflux disease without esophagitis; E78.5 Hyperlipidemia, unspecified; R13.10 Dysphagia, unspecified; Z85.51 Personal history of malignant neoplasm of bladder; Z79.899 Other long term (current) drug therapy; Z88.8 Allergy status to other drugs, medicaments and biological substances; Z88.5 Allergy status to narcotic agent; Z91.89 Other specified personal risk factors, not elsewhere classified
CPT/HCPCS: J2405

== ENCOUNTER 2018-07-05 08:54 | Inpatient (IN) | payer MEDICARE, BC, OTHER ==
[~2018-07-05] VITALS: Ht 165.1 cm; Wt 49.5 kg
[2018-07-05] MEDS: TIOTROPIUM INHALER/CAPSULE (SPIRIVA) INH SCH (08:00)
[~2018-07-05 08:54] MED LIST changes: -/ADVA50050; -/LORA10TA PO; -/PANT40TA PO; -/TIOT18INH INH; +ACET-683 PO; -ACET1TAB17 PO; +ACET1TAB55 PO; -ACET50TA PO; +ADVA1AER2; +AMIT25TA PO; +AMIT50TA PO; +AMOX500T2 PO; +BENA25CA4 PO; +BENZ-18 PO; +DOCU100C16 PO; +DOXY100C37 PO; +FLUO1TAB3 PO; +IPRA0.00 INH; +LEVA0.3131 INH; +LEVA250T13 PO; -LEVA31IN INH; +LORA-243 PO; +LORA-385 PO; -LORA10TA2 PO; -LOSA50TA20 PO; +LOSA50TA88 PO; +MAPA500T17 PO; +METO10TA2 PO; +METR-265 PO; +MILK120011 PO; -MILKSUS PO; -MIRA255PW PO; +MUPI1OIN2 EXT; -MUPI2OI EXT; +ONDA4TAB5 PO; -PANT40TA2 PO; +PANT40TA3 PO; +POLY1POW4 PO; -POTA20VL PO; +POTA2INJ30 PO; +PRED-351 PO; -PRED10TA PO; +PROAAER10 INH; +PROM12.56 PO; +PROT1TAB2 PO; +REGL10TA6 PO; +SPIR12.9 INH; +TRAZ1TAB36 PO; -TRAZO50TA PO; +ZITH500T PO; -ZOFR20TA PO; +ZOFR4TAB16 PO; +[UNRECOGNIZED DRUG - CODE] PO
[2018-07-05] MEDS ORDERED: FURO20TA2 PO (09:13)
[2018-07-05] MEDS ORDERED: AZIT-12 PO (09:13)
[2018-07-05] MEDS: IPRATROPIUM 0.5MG/ALBUTEROL 2.5MG INH SOL UD 3ML (DUONEB)(J7620) NEB SCH ×3 (09:32→10:09)
[2018-07-05 09:37] LABS: ABG BASE EXCESS 13.6 (-2.0-2.0); ABG HCO3 43.9 MEQ/L (22.0-26.0); ABG O2 SATURATION 98.9 % (95.0-99.0); ABG PARTIAL PRESSURE O2 129.3 mmHg (75.0-100.0); ABG STANDARD HCO3 37.5 MEQ/L (22.0-26.0); ABG TOTAL CO2 46.7 MEQ/L (23.0-31.0); ABG pH (ARTERIAL) 7.298 UNITS (7.350-7.450)
[2018-07-05 09:41] LABS: ABG PARTIAL PRESSURE CO2 91.6 mmHg (35.0-45.0)
[2018-07-05 09:50] LABS: BASO % 0.2 % (0.0-1.0); EOS % 0.1 % (0.0-3.0); HEMATOCRIT 42.1 % (36.0-47.0); HEMOGLOBIN 12.1 g/dl (12.0-15.5); LYMPH % 10.7 % (24.0-44.0); MEAN CORPUSCULAR HEMOGLOBIN 27.8 pg (27.0-33.0); MEAN CORPUSCULAR HGB CONC 28.7 g/dl (32.0-36.5); MEAN CORPUSCULAR VOLUME 96.6 fl (80.0-96.0); MONO # 1.6 10^3/uL (0.0-0.8); MONO % 8.3 % (0.0-5.0); NEUTROPHILS # 15.3 10^3/uL (1.8-7.7); NEUTROPHILS % 80.1 % (36.0-66.0); PLATELET COUNT, AUTOMATED 370 10^3/uL (150-450); RED BLOOD COUNT 4.36 10^6/uL (4.00-5.40); WHITE BLOOD COUNT 19.1 10^3/uL (4.0-10.0)
--- NOTE | 2018-07-05 10:19 | REP ---
Chest one-view HISTORY: Cough Comparison: 01/23/2018 Lungs are hyperinflated. An increase in interstitial markings is present in the lower lobes consistent with chronic interstitial change. Bullae are present in the upper lobes. The heart is normal in size. The pulmonary vasculature is normal in appearance. Impression: Chronic interstitial fibrosis. Electronically Signed by Erick Santiago MD 07/05/2018 10:10 A
[2018-07-05 10:23] LABS: ALBUMIN 3.4 GM/DL (3.2-5.2); ALT/SGPT 13 U/L (12-78); BILIRUBIN,DIRECT 0.1 MG/DL (0.0-0.2); BILIRUBIN,TOTAL 0.3 MG/DL (0.2-1.0); BLOOD UREA NITROGEN 18 MG/DL (7-18); CALCIUM LEVEL 9.7 MG/DL (8.8-10.2); CARBON DIOXIDE LEVEL 42 MEQ/L (21-32); CHLORIDE LEVEL 97 MEQ/L (98-107); CPK CREATINE PHOSPHOKINASE 38 U/L (26-192); CREATININE FOR GFR 0.91 MG/DL (0.55-1.30); GLOMERULAR FILTRATION RATE > 60.0 (>39); GLUCOSE, FASTING 84 MG/DL (70-100); MB/CK RELATIVE INDEX 6.58 (< OR =4); POTASSIUM SERUM 3.8 MEQ/L (3.5-5.1); SODIUM LEVEL 141 MEQ/L (136-145); THYROID STIMULATING HORMONE 0.119 uIU/ML (0.358-3.740); THYROXINE (T4) 11.1 UG/DL (4.5-12.0); TOTAL PROTEIN 6.7 GM/DL (6.4-8.2); TROPONIN I 0.02 NG/ML (< 0.10)
[2018-07-05 11:09] LABS: ABG BASE EXCESS 13.5 (-2.0-2.0); ABG HCO3 44.1 MEQ/L (22.0-26.0); ABG O2 SATURATION 92.8 % (95.0-99.0); ABG PARTIAL PRESSURE O2 69.6 mmHg (75.0-100.0); ABG STANDARD HCO3 37.1 MEQ/L (22.0-26.0); ABG pH (ARTERIAL) 7.281 UNITS (7.350-7.450)
[2018-07-05] MEDS ORDERED: methylPREDNISolone INJ 125 MG/2 ML VIAL (J2930) IV ONE (11:15)
[2018-07-05 11:40] LABS: ABG PARTIAL PRESSURE CO2 95.7 mmHg (35.0-45.0)
[2018-07-05] MEDS ORDERED: SPIR1CAP INH (11:52)
[2018-07-05] MEDS ORDERED: PRED10TA2 PO (11:52)
[2018-07-05] MEDS ORDERED: PRED20TA PO (11:52)
[2018-07-05] MEDS ORDERED: DICL1GEL3 TOP (11:52)
[2018-07-05 14:04] LABS: ABG BASE EXCESS 14.5 (-2.0-2.0); ABG HCO3 43.6 MEQ/L (22.0-26.0); ABG O2 SATURATION 94.2 % (95.0-99.0); ABG PARTIAL PRESSURE O2 70.7 mmHg (75.0-100.0); ABG STANDARD HCO3 38.3 MEQ/L (22.0-26.0); ABG TOTAL CO2 46.2 MEQ/L (23.0-31.0); ABG pH (ARTERIAL) 7.345 UNITS (7.350-7.450)
[2018-07-05 14:07] LABS: ABG PARTIAL PRESSURE CO2 81.8 mmHg (35.0-45.0)
--- NOTE | 2018-07-05 14:08 | HPEPDOC ---
General Date of Admission 07/05/18 Chief Complaint The patient is a 73-year-old female admitted with a reason for visit of Short Of Breath. Source: Patient, Family, Old records Exam Limitations: No limitations Severity: Severe History of Present Illness 73-year-old female with a PMHx of COPD with chronic respiratory failure with hypoxia and hypercarbia, Steroid dependent, Grade 1 Diastolic CHF, HTN, Dyslipidemia, Hx of Bladder CA, Hx of Kidney stones, Depression / Anxiety, Neck/Lower back pain, Allergic rhinitis, Vitamin D deficiency, GERD presented to the ED with 3 days history of increased cough, phlegm production and SOB. She had seen her primary care 2 days ago and was started on Z pack and prednisone 40 mg with no improvement. This morning she woke up unable to breathe ans was brought to the ED. Of note her recently last week in our ICU. So she has been in and out of the hospital when he was sick and she thinks that she caught a cold then from somewhere then which made her COPD to be exacerbated. In the ED initial ABG showed CO2 retention. 7.298/91.6. repeat ABG after nebs and steroids showed 7.28/95 so she was started on Noninvassive mechanical ventillation. The pateint is being admitted for acute on chronic respiratory failure with hypoxia and hypercarbia due to COPD exacerbation Home Medications Scheduled Azithromycin (Azithromycin) 250 Mg Tablet, 250 MG PO DAILY, (Reported) FILLED 07/03/18 FOR 5 DAYS Budesonide/Formoterol (Symbicort 160-4.5 Mcg Inhaler) 60 Puff/Inhaler Aers, 2 PUFF INH BID, (Reported) Pantoprazole Sodium (Pantoprazole Sodium) 40 Mg Tab, 40 MG PO DAILY, (Reported) Prednisone (Prednisone) 20 Mg Tablet, 40 MG PO DAILY, (Reported) FILLED 07/03/18 FOR 5 DAYS Prednisone (Prednisone) 10 Mg Tablet, 10 MG PO DAILY, (Reported) HASN'T BEEN TAKING SINCE BEING PRESCRIBED 5 DAY DOSE Roflumilast (Daliresp) 500 Mcg Tab, 500 MCG PO DAILY, (Reported) Tiotropium [place] (Spiriva) 18 Mcg Cap.w.dev, 1 INHALATION INH DAILY, (Re ported) PATIENT STATES SHE HASN'T USED IN QUITE A WHILE. Scheduled PRN Acetaminophen (Acetaminophen) 500 Mg Tab, 1,000 MG PO Q6H PRN for PAIN, (Reported) Albuterol Sulfate (Proair Hfa) 108 Mcg/Act Aer, 2 PUFF INH Q4H PRN for SHORTNESS OF BREATH, (Reported) Alprazolam (Alprazolam) 0.25 Mg Tab, 0.25 MG PO TID PRN for ANXIETY, (Reported) Diclofenac Sodium (Diclofenac Sodium) 1% 100GM Gel..gram., 1 DOSE TOP Q6H PRN for PAIN, (Reported) APPLY TO LEFT SHOULDER Diphenhydramine HCl (Benadryl) 25 Mg Cap, 25 MG PO Q4H PRN for RUNNY NOSE, (Reported) Furosemide (Furosemide) 20 Mg Tablet, 20 MG PO DAILY PRN for SWELLING, (Reported) Ondansetron HCl (Ondansetron HCl) 4 Mg Tab, 4 MG PO Q4H PRN for NAUSEA OR VOMITING, (Reported) Tramadol HCl (Tramadol HCl) 50 Mg Tab, 50 MG PO Q4H PRN for PAIN, (Reported) Allergies Coded Allergies: METALS (Verified Allergy, Intermediate, RASH, 05/07/07) bupropion (Verified Allergy, Intermediate, RASH, 07/05/18) morphine (Verified Allergy, Intermediate, H/A, PAIN, DIFFICULTY BREATHING, 07/05/18) codeine (Verified Adverse Reaction, Intermediate, HEADACHE AND PAIN, 07/05/18) albuterol (Verified Adverse Reaction, Mild, SHAKING, 07/05/18) moxifloxacin (Verified Adverse Reaction, Mild, VOMITING - CAN TAKE LEVAQUIN, 07/05/18) oxycodone (Verified Adverse Reaction, Mild, UPSET STOMACH, 07/05/18) hydrocodone (Verified Adverse Reaction, Unknown, 07/05/18) Past Medical History Medical History COPD with chronic respiratory failure with hypoxia and hypercarbia, Steroid dependent, Grade 1 Diastolic CHF, HTN, Dyslipidemia, Hx of Bladder CA, Hx of Kidney stones, Depression / Anxiety, Neck/Lower back pain, Allergic rhinitis, Vitamin D deficiency, GERD Surgical History TURBT - X 2 (BLADDER CANCER) LEFT NEPHROURETERECTOMY (AMP UROLOGY) 09/07/13 GALL BLADDER removal TUBAL LIGATION HYSTERECTOMY LOW BACK SURGERY X2 KNEE SURGERY NECK FUSION D&C L KNEE SURGERY X 2 R FOOT SURGERY X 2 - BUNION L ELBOW CYST REMOVED BREAST LUMPTECTOMIES (3XR, 1XL) NERVE REPAIR L ARM CARDIAC CATH X 2 R CATARACT SURGERY 01/2013 CYSTOSCOPY, TRANSURETHRAL RESECTION OF BLADDER TUMOR SURGERY 07/30/2014 BLADDER CANCER 12/16/15 Family History FATHER: , LUNG CANCER, DIAGNOSED WITH CANCER MOTHER: , LUNG CANCER, CANCER SIBLINGS: , LUNG CANCER, CANCER DAUGHTER(S): COPD 1 SON(S) , 5 DAUGHTER(S) - HEALTHY. HAS 1 LIVING SISTER, 3 LIVING BROTHERS Social History * Smoker: former Smoker Alcohol: Denies Drugs: denies A-FIB/CHADSVASC A-FIB History Current/History of A-Fib/PAF?: No Review of Systems Constitutional: Reports: Weakness, Fatigue Eyes: Denies: Pain, Vision change Skin: Denies: Rash, Lesions, Breakdown Pulmonary: Reports: Dyspnea, Cough Cardiovascular: Reports: Palpitations Gastrointestinal: Reports: Diarrhea; Denies: Nausea, Vomiting, Abdominal Pain Hematologic: Denies: Bruising, Bleeding Excessively Musculoskeletal: Reports: Back Pain Neurological: Denies: Weakness, Numbness, Change in speech, Confusion Psych: Reports: Anxiety, Depression; Denies: Memory Issues, Other Psych Physical Examination General Exam: Positive: Alert, Cooperative, Moderate Distress Eye Exam: Positive: PERRLA, Conjunctiva & lids normal, EOMI; Negative: Sclera icteric ENT Exam: Positive: Atraumatic, Pharynx Normal, Tongue Midline, Nares Patent Neck Exam: Positive: Supple; Negative: JVD, thyromegaly Chest Exam: Positive: Diminished; Negative: Rales, Rhonchi, Wheezing Heart Exam: Positive: Tachycardic, Regular Rhythm, Normal S1, Normal S2; Negative: Murmurs, Rubs Telemetry: Positive: Sinus, Tachycardia Abdomen Exam: Positive: Normal bowel sounds, Soft; Negative: Tenderness, Hepatospenomegaly Extremity Exam: Negative: Clubbing, Cyanosis, Edema Skin Exam: Positive: Nl turgor and temperature; Negative: Breakdown, Lesion Neuro Exam: Positive: Normal Gait, Normal Speech, Strength at 5/5 X4 ext, Normal Tone Psych Exam: Positive: Mental status NL, Oriented x 3 Vital Signs Vital Signs Date Time Temp Pulse Resp B/P (MAP) Pulse Ox O2 Delivery O2 Flow Rate FiO2 07/05/18 13:24 137/74 (95) 07/05/18 13:00 102 26 93 NIPPV (BIPAP/CPAP) 07/05/18 12:04 30 07/05/18 11:15 2.0 07/05/18 08:55 98.2 Laboratory Data Labs 24H Laboratory Tests 2 07/05/18 09:16: Immature Granulocyte % (Auto) 0.6, White Blood Count 19.1H, Red Blood Count 4.36, Hemoglobin 12.1, Hematocrit 42.1, Mean Corpuscular Volume 96.6H, Mean Corpuscular Hemoglobin 27.8, Mean Corpuscular Hemoglobin Concent 28.7L, Red Cell Distribution Width 14.3, Platelet Count 370, Neutrophils (%) (Auto) 80.1H, Lymphocytes (%) (Auto) 10.7L, Monocytes (%) (Auto) 8.3H, Eosinophils (%) (Auto) 0.1, Basophils (%) (Auto) 0.2, Neutrophils # (Auto) 15.3H, Lymphocytes # (Auto) 2.0, Monocytes # (Auto) 1.6H, Eosinophils # (Auto) 0.0, Basophils # (Auto) 0.0, Nucleated Red Blood Cells % (auto) 0.0, Blood Gas Bicarbonate Standard 37.5H, Arterial Blood pH 7.298L, Arterial Blood Partial Pressure CO2 91.6*H, Arterial Blood Partial Pressure O2 129.3H, Arterial Blood Total CO2 46.7H, Arterial Blood HCO3 43.9H, Arterial Blood Base Excess 13.6H, Arterial Blood Oxygen Saturation 98.9, Anion Gap 2L, Glomerular Filtration Rate > 60.0, Calcium Level 9.7, Aspartate Amino Transf (AST/SGOT) 13, Alanine Aminotransferase (ALT/SGPT) 13, Alkaline Phosphatase 80, Total Bilirubin 0.3, Direct Bilirubin 0.1, Total Creatine Kinase 38, Creatine Kinase MB 2.0, Creatine Kinase MB Relative Index 6.58H, Troponin I 0.02, Total Protein 6.7, Albumin 3.4, Albumin/Globulin Ratio 1.03, Thyroid Stimulating Hormone (TSH) 0.119L, Thyroxine (T4) 11.1 07/05/18 09:17: Lactic Acid Level 1.3 07/05/18 10:50: Blood Gas Bicarbonate Standard 37.1H, Arterial Blood pH 7.281L, Arterial Blood Partial Pressure CO2 95.7*H, Arterial Blood Partial Pressure O2 69.6L, Arterial Blood Total CO2 47.0H, Arterial Blood HCO3 44.1H, Arterial Blood Base Excess 13.5H, Arterial Blood Oxygen Saturation 92.8L CBC/BMP Laboratory Tests 07/05/18 09:16 Red Blood Count 4.36, Mean Corpuscular Volume 96.6 H, Mean Corpuscular Hemoglobin 27.8, Mean Corpuscular Hemoglobin Concent 28.7 L, Red Cell Distribution Width 14.3, Neutrophils (%) (Auto) 80.1 H, Lymphocytes (%) (Auto) 10.7 L, Monocytes (%) (Auto) 8.3 H, Eosinophils (%) (Auto) 0.1, Basophils (%) (Auto) 0.2, Neutrophils # (Auto) 15.3 H, Lymphocytes # (Auto) 2.0, Monocytes # (Auto) 1.6 H, Eosinophils # (Auto) 0.0, Basophils # (Auto) 0.0 Microbiology Microbiology 07/05/18 Blood Culture, Received Pending 07/05/18 Respiratory Virus Panel (PCR) ([facility]), Received Pending Assessment/Plan 73-year-old female with a PMHx of COPD with chronic respiratory failure with hypoxia and hypercarbia, Steroid dependent, Grade 1 Diastolic CHF, HTN, Dyslipidemia, Hx of Bladder CA, Hx of Kidney stones, Depression / Anxiety, Neck/Lower back pain, Allergic rhinitis, Vitamin D deficiency, GERD presented to the ED with 3 days history of increased cough, phlegm production and SOB. She had seen her primary care 2 days ago and was started on Z pack and prednisone 40 mg with no improvement. This morning she woke up unable to breathe ans was brought to the ED. Of note her recently last week in our ICU. So she has been in and out of the hospital when he was sick and she thinks that she caught a cold then from somewhere then which made her COPD to be exacerbated. In the ED initial ABG showed CO2 retention. 7.298/91.6. repeat ABG after nebs and steroids showed 7.28/95 so she was started on Noninvassive mechanical ventillation. 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 Diastolic CHF seems to be euvolemic to hypovolemic will hold lasix Plan / VTE VTE Prophylaxis Ordered?: Yes PAYAL CHATMAN MD July 05, 2018 14:08
[2018-07-05] MEDS ORDERED: ONDANSETRON 4MG/2ML VIAL (J2405) IV PRN (14:15)
[2018-07-05 15:50] VITALS: BP 135/75
[2018-07-05] MEDS ORDERED: PREVNAR 13 VACCINE SYRINGE (CPT CODE:90670) IM PRN (17:00)
--- NOTE | 2018-07-05 17:15 | ECGEPIP ---
Stationary ECG Study [facility] - ED Test Date: 2018-07-05 Pat Name: ELROY ROSENBERG Department: Room: - Gender: F Computer Trainer: JACLYN : 1945 Requested By: Katelynn Lopez Order Number: [id number] Reading MD: Alexander Mendoza Measurements Intervals [place] Rate: 117 P: 75 MD: 120 QRS: 85 QRSD: 81 T: 56 QT: 299 QTc: 417 Interpretive Statements SINUS TACHYCARDIA WITH OCCASIONAL ATRIAL PREMATURE COMPLEXES POSSIBLE LEFT ATRIAL ENLARGEMENT SIMILAR TO 01/23/18 Electronically Signed On 07-05-2018 17:15:40 EDT by Alexander Mendoza
[2018-07-05] MEDS: AZITHROMYCIN 250 MG TAB PO SCH (17:22)
[2018-07-05] MEDS: ENOXAPARIN 40 MG/0.4 ML SYRINGE (J1650) SC SCH (17:22)
[2018-07-05] MEDS: PANTOPRAZOLE 40MG TAB (PROTONIX) PO SCH (17:22)
[2018-07-05 18:00] VITALS: BP 146/74
[2018-07-05] MEDS: methylPREDNISolone INJ 40 MG/1 ML VIAL (J2920) IV SCH (18:38)
[2018-07-05] MEDS: BUDESONIDE 0.5 MG/2 ML INHALATION SUSPENSION INH SCH (19:46)
[2018-07-05] MEDS: ALBUTEROL SULFATE 2.5 MG/0.5 ML INH NEB SOLN NEB SCH ×2 (19:46→23:48)
[2018-07-05 20:00] VITALS: BP 141/65
[2018-07-05 21:47] LABS: ABG BASE EXCESS 11.6 (-2.0-2.0); ABG HCO3 41.5 MEQ/L (22.0-26.0); ABG O2 SATURATION 96.6 % (95.0-99.0); ABG PARTIAL PRESSURE O2 87.3 mmHg (75.0-100.0); ABG STANDARD HCO3 35.4 MEQ/L (22.0-26.0); ABG TOTAL CO2 44.2 MEQ/L (23.0-31.0); ABG pH (ARTERIAL) 7.288 UNITS (7.350-7.450)
[2018-07-05 21:54] LABS: ABG PARTIAL PRESSURE CO2 88.6 mmHg (35.0-45.0)
[2018-07-06] VITALS: BP 132/72
[2018-07-06] MEDS: methylPREDNISolone INJ 40 MG/1 ML VIAL (J2920) IV SCH ×3 (02:49→18:12)
[2018-07-06 04:00] VITALS: BP 137/80
[2018-07-06] MEDS: ALBUTEROL SULFATE 2.5 MG/0.5 ML INH NEB SOLN NEB SCH ×6 (04:04→23:23)
[2018-07-06 04:57] LABS: BASO % 0.1 % (0.0-1.0); EOS % 0.1 % (0.0-3.0); HEMATOCRIT 37.1 % (36.0-47.0); HEMOGLOBIN 10.8 g/dl (12.0-15.5); LYMPH # 0.6 10^3/uL (1.5-4.5); LYMPH % 3.1 % (24.0-44.0); MEAN CORPUSCULAR HEMOGLOBIN 27.3 pg (27.0-33.0); MEAN CORPUSCULAR HGB CONC 29.1 g/dl (32.0-36.5); MEAN CORPUSCULAR VOLUME 93.7 fl (80.0-96.0); MONO # 0.6 10^3/uL (0.0-0.8); MONO % 3.1 % (0.0-5.0); NEUTROPHILS # 18.5 10^3/uL (1.8-7.7); NEUTROPHILS % 92.9 % (36.0-66.0); PLATELET COUNT, AUTOMATED 336 10^3/uL (150-450); RED BLOOD COUNT 3.96 10^6/uL (4.00-5.40); WHITE BLOOD COUNT 19.9 10^3/uL (4.0-10.0)
[2018-07-06 05:26] LABS: BLOOD UREA NITROGEN 17 MG/DL (7-18); CALCIUM LEVEL 8.9 MG/DL (8.8-10.2); CARBON DIOXIDE LEVEL 43 MEQ/L (21-32); CHLORIDE LEVEL 96 MEQ/L (98-107); CREATININE FOR GFR 0.73 MG/DL (0.55-1.30); GLOMERULAR FILTRATION RATE > 60.0 (>39); GLUCOSE, FASTING 131 MG/DL (70-100); POTASSIUM SERUM 4.7 MEQ/L (3.5-5.1); SODIUM LEVEL 140 MEQ/L (136-145)
[2018-07-06 06:12] LABS: ABG BASE EXCESS 16.3 (-2.0-2.0); ABG HCO3 44.5 MEQ/L (22.0-26.0); ABG O2 SATURATION 94.7 % (95.0-99.0); ABG PARTIAL PRESSURE O2 68.5 mmHg (75.0-100.0); ABG STANDARD HCO3 40.2 MEQ/L (22.0-26.0); ABG TOTAL CO2 46.8 MEQ/L (23.0-31.0)
[2018-07-06 06:15] LABS: ABG PARTIAL PRESSURE CO2 75.2 mmHg (35.0-45.0)
[2018-07-06] MEDS: BUDESONIDE 0.5 MG/2 ML INHALATION SUSPENSION INH SCH ×2 (07:17→19:40)
[2018-07-06] MEDS: TIOTROPIUM INHALER/CAPSULE (SPIRIVA) INH SCH (07:17)
[2018-07-06] MEDS: AZITHROMYCIN 250 MG TAB PO SCH (08:25)
[2018-07-06] MEDS: ENOXAPARIN 40 MG/0.4 ML SYRINGE (J1650) SC SCH (08:25)
[2018-07-06] MEDS: PANTOPRAZOLE 40MG TAB (PROTONIX) PO SCH (08:25)
[2018-07-06 09:24] VITALS: BP 141/71
[2018-07-06 12:00] VITALS: BP 161/78
--- NOTE | 2018-07-06 15:00 | IPNPDOC ---
Subjective Date Seen The patient was seen on 07/06/18. Subjective Chief Complaint/HPI Says her SOB is a little better this morning. Objective Physical Examination General Exam: Positive: Alert, Cooperative, Moderate Distress Eye Exam: Positive: PERRLA, Conjunctiva & lids normal, EOMI; Negative: Sclera icteric ENT Exam: Positive: Atraumatic, Pharynx Normal, Tongue Midline, Nares Patent Neck Exam: Positive: Supple; Negative: JVD, thyromegaly Chest Exam: Positive: Diminished; Negative: Rales, Rhonchi, Wheezing Heart Exam: Positive: Tachycardic, Regular Rhythm, Normal S1, Normal S2; Negative: Murmurs, Rubs Telemetry: Positive: Sinus, Tachycardia Abdomen Exam: Positive: Normal bowel sounds, Soft; Negative: Tenderness, Hepatospenomegaly Extremity Exam: Negative: Clubbing, Cyanosis, Edema Skin Exam: Positive: Nl turgor and temperature; Negative: Breakdown, Lesion Neuro Exam: Positive: Normal Gait, Normal Speech, Strength at 5/5 X4 ext, Normal Tone Psych Exam: Positive: Mental status NL, Oriented x 3 Assessment /Plan Assessment 73-year-old female with a PMHx of COPD with chronic respiratory failure with hypoxia and hypercarbia, Steroid dependent, Grade 1 Diastolic CHF, HTN, Dyslipidemia, Hx of Bladder CA, Hx of Kidney stones, Depression / Anxiety, Neck/Lower back pain, Allergic rhinitis, Vitamin D deficiency, GERD presented to the ED with 3 days history of increased cough, phlegm production and SOB. She had seen her primary care 2 days ago and was started on Z pack and prednisone 40 mg with no improvement. This morning she woke up unable to breathe ans was brought to the ED. Of note her recently last week in our ICU. So she has been in and out of the hospital when he was sick and she thinks that she caught a cold then from somewhere then which made her COPD to be exacerbated. In the ED initial ABG showed CO2 retention. 7.298/91.6. repeat ABG after nebs and steroids showed 7.28/95 so she was started on Noninvassive mechanical ventilation. The patient is being admitted for acute on chronic respiratory failure with hypoxia and hypercarbia due to COPD exacerbation Acute on chronic respiratory failure with hypoxia and hypercarbia will continue with Noninvasive mechanical ventilation ABG improved after overnight BIPAP. Use BIPAP during naps and at night. Will check ABG at 9pm continue management of COPD COPD exacerbation will continue with Nebs, methyl prednisone will continue azithromycin resp panel negaive. 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 Diastolic CHF seems to be euvolemic to hypovolemic will hold lasix Plan/VTE VTE Prophylaxis Ordered?: Yes VS, I&O, 24H, Fishbone Vital Signs/I&O Vital Signs Date Time Temp Pulse Resp B/P (MAP) Pulse Ox O2 Delivery O2 Flow Rate FiO2 07/06/18 12:00 3.0 07/06/18 12:00 98.6 104 22 161/78 (105) 94 07/06/18 04:00 30 07/05/18 15:00 NIPPV (BIPAP/CPAP) I&O- Last 24 Hours up to 6 AM 07/06/18 05:59 Intake Total 150 ml Output Total 450 ml Balance -300 ml Laboratory Data 24H LABS Laboratory Tests 2 07/05/18 21:37: Blood Gas Bicarbonate Standard 35.4H, Arterial Blood pH 7.288L, Arterial Blood Partial Pressure CO2 88.6*H, Arterial Blood Partial Pressure O2 87.3, Arterial Blood Total CO2 44.2H, Arterial Blood HCO3 41.5H, Arterial Blood Base Excess 11.6H, Arterial Blood Oxygen Saturation 96.6 07/06/18 04:31: Immature Granulocyte % (Auto) 0.7, White Blood Count 19.9H, Red Blood Count 3.96L, Hemoglobin 10.8L, Hematocrit 37.1, Mean Corpuscular Volume 93.7, Mean Corpuscular Hemoglobin 27.3, Mean Corpuscular Hemoglobin Concent 29.1L, Red Cell Distribution Width 14.3, Platelet Count 336, Neutrophils (%) (Auto) 92.9H, Lymphocytes (%) (Auto) 3.1L, Monocytes (%) (Auto) 3.1, Eosinophils (%) (Auto) 0.1, Basophils (%) (Auto) 0.1, Neutrophils # (Auto) 18.5H, Lymphocytes # (Auto) 0.6L, Monocytes # (Auto) 0.6, Eosinophils # (Auto) 0.0, Basophils # (Auto) 0.0, Nucleated Red Blood Cells % (auto) 0.0, Anion Gap 1L, Glomerular Filtration Rate > 60.0, Blood Urea Nitrogen 17, Creatinine 0.73, Sodium Level 140, Potassium Level 4.7#, Chloride Level 96L, Carbon Dioxide Level 43H, Calcium Level 8.9 07/06/18 06:01: Blood Gas Bicarbonate Standard 40.2H, Arterial Blood pH 7.390, Arterial Blood Partial Pressure CO2 75.2*H, Arterial Blood Partial Pressure O2 68.5L, Arterial Blood Total CO2 46.8H, Arterial Blood HCO3 44.5H, Arterial Blood Base Excess 16.3H, Arterial Blood Oxygen Saturation 94.7L CBC/BMP Laboratory Tests 07/06/18 04:31 Red Blood Count 3.96 L, Mean Corpuscular Volume 93.7, Mean Corpuscular Hemoglobin 27.3, Mean Corpuscular Hemoglobin Concent 29.1 L, Red Cell Distribution Width 14.3, Neutrophils (%) (Auto) 92.9 H, Lymphocytes (%) (Auto) 3.1 L, Monocytes (%) (Auto) 3.1, Eosinophils (%) (Auto) 0.1, Basophils (%) (Auto) 0.1, Neutrophils # (Auto) 18.5 H, Lymphocytes # (Auto) 0.6 L, Monocytes # (Auto) 0.6, Eosinophils # (Auto) 0.0, Basophils # (Auto) 0.0, Calcium Level 8.9 Microbiology Microbiology 07/05/18 Blood Culture - Preliminary, Resulted No growth after 24 hours . All specim... 07/05/18 Respiratory Virus Panel (PCR) ([facility]) - Final, Complete PAYAL CHATMAN MD July 06, 2018 15:00
[2018-07-06 16:00] VITALS: BP 160/74
[2018-07-06 20:00] VITALS: BP 160/86
[2018-07-06] MEDS: LOSARTAN 50 MG TAB PO SCH (20:30)
[2018-07-06 21:52] LABS: ABG O2 SATURATION 98.5 % (95.0-99.0)
[2018-07-06 21:54] LABS: ABG BASE EXCESS 15.2 (-2.0-2.0); ABG HCO3 45.3 MEQ/L (22.0-26.0); ABG PARTIAL PRESSURE O2 116.7 mmHg (75.0-100.0); ABG STANDARD HCO3 39.2 MEQ/L (22.0-26.0); ABG TOTAL CO2 48.1 MEQ/L (23.0-31.0); ABG pH (ARTERIAL) 7.317 UNITS (7.350-7.450)
[2018-07-06 21:55] LABS: ABG PARTIAL PRESSURE CO2 90.6 mmHg (35.0-45.0)
[2018-07-07] VITALS (7 sets, daily range): BP systolic 137–155; BP diastolic 71–83; O2SAT 96
[2018-07-07] MEDS: methylPREDNISolone INJ 40 MG/1 ML VIAL (J2920) IV SCH (03:00)
[2018-07-07] MEDS: ALBUTEROL SULFATE 2.5 MG/0.5 ML INH NEB SOLN NEB SCH ×4 (03:20→23:11)
[2018-07-07 05:01] LABS: BASO % 0.2 % (0.0-1.0); HEMATOCRIT 40.8 % (36.0-47.0); HEMOGLOBIN 11.7 g/dl (12.0-15.5); LYMPH % 4.8 % (24.0-44.0); MEAN CORPUSCULAR HEMOGLOBIN 27.4 pg (27.0-33.0); MEAN CORPUSCULAR HGB CONC 28.7 g/dl (32.0-36.5); MEAN CORPUSCULAR VOLUME 95.6 fl (80.0-96.0); MONO # 0.9 10^3/uL (0.0-0.8); MONO % 4.4 % (0.0-5.0); NEUTROPHILS # 17.8 10^3/uL (1.8-7.7); NEUTROPHILS % 89.4 % (36.0-66.0); PLATELET COUNT, AUTOMATED 396 10^3/uL (150-450); RED BLOOD COUNT 4.27 10^6/uL (4.00-5.40); WHITE BLOOD COUNT 19.9 10^3/uL (4.0-10.0)
[2018-07-07 05:11] LABS: BLOOD UREA NITROGEN 21 MG/DL (7-18); CARBON DIOXIDE LEVEL 43 MEQ/L (21-32); CHLORIDE LEVEL 95 MEQ/L (98-107); CREATININE FOR GFR 0.94 MG/DL (0.55-1.30); GLOMERULAR FILTRATION RATE > 60.0 (>39); GLUCOSE, FASTING 126 MG/DL (70-100); POTASSIUM SERUM 4.5 MEQ/L (3.5-5.1); SODIUM LEVEL 141 MEQ/L (136-145)
[2018-07-07] MEDS: BUDESONIDE 0.5 MG/2 ML INHALATION SUSPENSION INH SCH ×2 (07:19→19:58)
[2018-07-07] MEDS: TIOTROPIUM INHALER/CAPSULE (SPIRIVA) INH SCH (07:19)
[2018-07-07] MEDS: FORMOTEROL FUMARATE 20 MCG/2 ML INHALATION SOLUTION (PERFOROMIST) INH SCH ×2 (08:00→19:58)
[2018-07-07] MEDS: PANTOPRAZOLE 40MG TAB (PROTONIX) PO SCH (08:03)
[2018-07-07] MEDS: AZITHROMYCIN 250 MG TAB PO SCH (08:03)
[2018-07-07] MEDS: ENOXAPARIN 40 MG/0.4 ML SYRINGE (J1650) SC SCH (08:04)
[2018-07-07] MEDS ORDERED: IPRATROPIUM 0.5MG/ALBUTEROL 2.5MG INH SOL UD 3ML (DUONEB)(J7620) NEB PRN (09:00)
[2018-07-07] MEDS: ALPRAZolam 0.25 MG TAB PO PRN ×2 (09:32→20:55)
--- NOTE | 2018-07-07 09:57 | IPNPDOC ---
Subjective Date Seen The patient was seen on 07/07/18. Subjective Chief Complaint/HPI Patient had a bad episode of desaturation last night after a bowel movement in the bedside commode. She desaturated to 75 % and needed non rebreather to bring it up. She came up in 2 mins. She is very anxious this morning and does not even want to get out of bed. No fever or chills, She has a cough but unable to bring up anything., Complains of some chest pain when she coughs hard. Objective Physical Examination General Exam: Positive: Alert, Cooperative, Moderate Distress Eye Exam: Positive: PERRLA, Conjunctiva & lids normal, EOMI; Negative: Sclera icteric ENT Exam: Positive: Atraumatic, Pharynx Normal, Tongue Midline, Nares Patent Neck Exam: Positive: Supple; Negative: JVD, thyromegaly Chest Exam: Positive: Diminished; Negative: Rales, Rhonchi, Wheezing Heart Exam: Positive: Tachycardic, Regular Rhythm, Normal S1, Normal S2; Negative: Murmurs, Rubs Telemetry: Positive: Sinus, Tachycardia Abdomen Exam: Positive: Normal bowel sounds, Soft; Negative: Tenderness, Hepatospenomegaly Extremity Exam: Negative: Clubbing, Cyanosis, Edema Skin Exam: Positive: Nl turgor and temperature; Negative: Breakdown, Lesion Neuro Exam: Positive: Normal Gait, Normal Speech, Strength at 5/5 X4 ext, Normal Tone Psych Exam: Positive: Mental status NL, Oriented x 3 Assessment /Plan Assessment 73-year-old female with a PMHx of COPD with chronic respiratory failure with hypoxia and hypercarbia, Steroid dependent, Grade 1 Diastolic CHF, HTN, Dyslipidemia, Hx of Bladder CA, Hx of Kidney stones, Depression / Anxiety, Neck/Lower back pain, Allergic rhinitis, Vitamin D deficiency, GERD presented to the ED with 3 days history of increased cough, phlegm production and SOB. She had seen her primary care 2 days ago and was started on Z pack and prednisone 40 mg with no improvement. This morning she woke up unable to breathe ans was brought to the ED. Of note her recently last week in our ICU. So she has been in and out of the hospital when he was sick and she thinks that she caught a cold then from somewhere then which made her COPD to be exacerbated. In the ED initial ABG showed CO2 retention. 7.298/91.6. repeat ABG after nebs and steroids showed 7.28/95 so she was started on Noninvassive mechanical ventilation. The patient is being admitted for acute on chronic respiratory failure with hypoxia and hypercarbia due to COPD exacerbation Acute on chronic respiratory failure with hypoxia and hypercarbia will continue with Noninvasive mechanical ventilation ABG had improved after overnight BIPAP then again worsened in the PM. Use BIPAP during naps and at night. Will check ABG at 9pm continue management of COPD will consult pulmonary. COPD exacerbation will continue with formoterol, budesonide, albuterol and duonebs prn. Steroid dose was increased will continue azithromycin resp panel negaive. 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 Diastolic CHF seems to be euvolemic to hypovolemic will hold lasix Plan/VTE VTE Prophylaxis Ordered?: Yes VS, I&O, 24H, Fishbone Vital Signs/I&O Vital Signs Date Time Temp Pulse Resp B/P (MAP) Pulse Ox O2 Delivery O2 Flow Rate FiO2 07/07/18 04:00 30 07/07/18 04:00 97.9 105 26 152/76 (101) 91 07/06/18 20:00 3.0 07/05/18 15:00 NIPPV (BIPAP/CPAP) I&O- Last 24 Hours up to 6 AM 07/07/18 06:00 Intake Total 660 ml Output Total 550 ml Balance 110 ml Laboratory Data 24H LABS Laboratory Tests 2 07/06/18 21:30: Blood Gas Bicarbonate Standard 39.2H, Arterial Blood pH 7.317L, Arterial Blood Partial Pressure CO2 90.6*H, Arterial Blood Partial Pressure O2 116.7H, Arterial Blood Total CO2 48.1H, Arterial Blood HCO3 45.3H, Arterial Blood Base Excess 15.2H, Arterial Blood Oxygen Saturation 98.5 07/07/18 04:28: Immature Granulocyte % (Auto) 1.2, White Blood Count 19.9H, Red Blood Count 4.27, Hemoglobin 11.7L, Hematocrit 40.8, Mean Corpuscular Volume 95.6, Mean Corpuscular Hemoglobin 27.4, Mean Corpuscular Hemoglobin Concent 28.7L, Red Cell Distribution Width 14.1, Platelet Count 396, Neutrophils (%) (Auto) 89.4H, Lymphocytes (%) (Auto) 4.8L, Monocytes (%) (Auto) 4.4, Eosinophils (%) (Auto) 0.0, Basophils (%) (Auto) 0.2, Neutrophils # (Auto) 17.8H, Lymphocytes # (Auto) 1.0L, Monocytes # (Auto) 0.9H, Eosinophils # (Auto) 0.0, Basophils # (Auto) 0.0, Nucleated Red Blood Cells % (auto) 0.0, Anion Gap 3L, Glomerular Filtration Rate > 60.0, Blood Urea Nitrogen 21H, Creatinine 0.94, Sodium Level 141, Potassium Level 4.5, Chloride Level 95L, Carbon Dioxide Level 43H, Calcium Level 9.0 CBC/BMP Laboratory Tests 07/07/18 04:28 Red Blood Count 4.27, Mean Corpuscular Volume 95.6, Mean Corpuscular Hemoglobin 27.4, Mean Corpuscular Hemoglobin Concent 28.7 L, Red Cell Distribution Width 14.1, Neutrophils (%) (Auto) 89.4 H, Lymphocytes (%) (Auto) 4.8 L, Monocytes (%) (Auto) 4.4, Eosinophils (%) (Auto) 0.0, Basophils (%) (Auto) 0.2, Neutrophils # (Auto) 17.8 H, Lymphocytes # (Auto) 1.0 L, Monocytes # (Auto) 0.9 H, Eosinophils # (Auto) 0.0, Basophils # (Auto) 0.0, Calcium Level 9.0 Microbiology Microbiology 07/05/18 Blood Culture - Preliminary, Resulted No Growth after 48 hours. All Specime... 07/05/18 Respiratory Virus Panel (PCR) ([facility]) - Final, Complete PAYAL CHATMAN MD July 07, 2018 09:57
[2018-07-07] MEDS: guaiFENesin ER 600 MG TAB PO SCH ×2 (10:28→20:02)
--- NOTE | 2018-07-07 11:10 | IPN ---
DATE OF VISIT: 07/07/2018 I was asked by Dr. Rojas to attend Ellie Henderson. The patient has been examined and chart reviewed. She is well known to me from the outpatient setting. She recently suffered the loss of her . In essence, she has essentially end-stage obstructive lung disease with both chronic hypoxemic and hypercapnic respiratory failure. She is admitted at this time with exacerbation of that. Although, she has made herself a DO NOT RESUSCITATE. She has checked the box which opted for a trial of mechanical ventilation. In view of her overall status, I do not think this would be advisable. The likelihood of weaning her from mechanical ventilatory support is marginal at best. Her best functional status is essentially bedridden due to profound dyspnea with any activity. She is having more trouble as of late with secretion clearance, which further compounds her status. Current medications are reviewed and include Spiriva, Pulmicort, Solu-Medrol currently 40 mg IV every 8 as well as DuoNebs, formoterol. She is on ulcerative deep venous thrombosis (DVT) prophylaxis. Currently, she is afebrile with a temperature of 97.9, blood pressure generally in the 140 systolic, heart rate in the low 100s with a sinus mechanism. Respiratory rate generally in the low 20s with intermittent pursed lip breathing with any activity. Most recent blood gas done at 2130 hours last evening I believe on nasal cannula, although this is not documented well shows a pH 7.317, pCO2 of 90.6 and pO2 of 116.7. She has been unable to be maintained off of noninvasive support at night and is still intermittently on and off during day. Other laboratories show white blood cell count 19.9, hemoglobin 11.7, and platelet count 396,000. Sodium 141, potassium of 4.5, chloride 95, CO2 of 43, BUN 21, creatinine 0.94. Chest x-ray at the time of admission shows her chronic interstitial changes with her emphysema but no obvious acute abnormalities. On exam, she is awake, alert and appropriate, but short of breath with any activity even in bed. Vitals are as above. HEENT is otherwise normocephalic, atraumatic. Pupils do react. Nasal cannula oxygen in place. Trachea is in the midline. Chest shows diffuse hyperresonance to percussion with markedly diminished breath sound intensity and markedly diminished excursion. There are some occasional rhonchi that do not clear completely with cough. There is some end expiratory squeak. There is some basilar crackles. These crackles are basically taveras inspiratory. No other focal adventitious breath sounds are identified. Cardiac exam tachycardia, distant but regular. Peripheral pulses palpable. Trace edema at best. Abdomen is soft, nontender with active bowel sounds. No convincing organomegaly or masses. Extremities: Without cyanosis or clubbing. Neurologic: She is awake, alert and appropriate. Psychiatric: Shows normal mood and affect. IMPRESSION: 1. Acute on chronic respiratory failure with hypoxemic and hypercapnic. 2. Essentially end-stage lung disease on the basis of the above. 3. Underlying emphysema. 4. Previous tobacco history. 5. Steroid dependence. 6. Underlying diastolic congestive heart failure (CHF). 7. Hypertension. 8. History of bladder cancer. RECOMMENDATIONS: In view of the above, there is very little else to maximize unfortunately. I will try giving her a couple of days of higher dose steroids and we can add some expectorants. We will attempt to aid her secretion clearance with the use of EzPAP. Certainly noninvasive will help to some degree with her CO2 retention, but unfortunately it makes her cough more inefficient. I did discuss with her, her current status. At this point, she is still opting for a trial of intubation if it comes to that but I believe that, that would not be in her best interest as the likelihood of weaning her from ventilatory support I believe is slim to none. For now, we will use noninvasive support off and on as needed keeping in mind her secretion clearance. She is on ulcerative deep venous thrombosis (DVT) prophylaxis. At this point, I do not believe antimicrobials are warranted other than the azithromycin, which she is already on, which also aids us in her inflammatory status. Due to the above, her prognosis is guarded at best and there is a very high likelihood that she may not survive this hospitalization. Further recommendations will be made in the progress records as new information becomes available.
[2018-07-07] MEDS: methylPREDNISolone INJ 125 MG/2 ML VIAL (J2930) IV SCH ×2 (14:04→20:01)
[2018-07-07] MEDS: SODIUM CHLORIDE HYPERTONIC 3% 15ML NEB SOL INH SCH ×2 (15:15→23:11)
[2018-07-07 17:34] LABS: ABG BASE EXCESS 15.2 (-2.0-2.0); ABG HCO3 44.4 MEQ/L (22.0-26.0); ABG O2 SATURATION 91.1 % (95.0-99.0); ABG PARTIAL PRESSURE O2 60.4 mmHg (75.0-100.0); ABG STANDARD HCO3 38.9 MEQ/L (22.0-26.0); ABG TOTAL CO2 46.9 MEQ/L (23.0-31.0); ABG pH (ARTERIAL) 7.355 UNITS (7.350-7.450)
[2018-07-07 17:35] LABS: ABG PARTIAL PRESSURE CO2 81.3 mmHg (35.0-45.0)
[2018-07-07] MEDS: LOSARTAN 50 MG TAB PO SCH (20:02)
[2018-07-08] VITALS (8 sets, daily range): BP systolic 122–154; BP diastolic 65–79; O2SAT 89–92
[2018-07-08] MEDS: methylPREDNISolone INJ 125 MG/2 ML VIAL (J2930) IV SCH ×4 (01:53→20:05)
[2018-07-08 05:01] LABS: BASO % 0.1 % (0.0-1.0); HEMATOCRIT 40.2 % (36.0-47.0); HEMOGLOBIN 11.5 g/dl (12.0-15.5); LYMPH # 0.5 10^3/uL (1.5-4.5); LYMPH % 2.5 % (24.0-44.0); MEAN CORPUSCULAR HEMOGLOBIN 26.7 pg (27.0-33.0); MEAN CORPUSCULAR HGB CONC 28.6 g/dl (32.0-36.5); MEAN CORPUSCULAR VOLUME 93.5 fl (80.0-96.0); MONO # 0.5 10^3/uL (0.0-0.8); MONO % 2.5 % (0.0-5.0); NEUTROPHILS # 16.5 10^3/uL (1.8-7.7); NEUTROPHILS % 93.6 % (36.0-66.0); PLATELET COUNT, AUTOMATED 392 10^3/uL (150-450); WHITE BLOOD COUNT 17.7 10^3/uL (4.0-10.0)
[2018-07-08 05:23] LABS: BLOOD UREA NITROGEN 30 MG/DL (7-18); CARBON DIOXIDE LEVEL 45 MEQ/L (21-32); CHLORIDE LEVEL 97 MEQ/L (98-107); CREATININE FOR GFR 0.83 MG/DL (0.55-1.30); GLOMERULAR FILTRATION RATE > 60.0 (>39); GLUCOSE, FASTING 128 MG/DL (70-100); POTASSIUM SERUM 4.7 MEQ/L (3.5-5.1); SODIUM LEVEL 142 MEQ/L (136-145)
[2018-07-08] MEDS: ALBUTEROL SULFATE 2.5 MG/0.5 ML INH NEB SOLN NEB SCH ×3 (07:26→23:34)
[2018-07-08] MEDS: FORMOTEROL FUMARATE 20 MCG/2 ML INHALATION SOLUTION (PERFOROMIST) INH SCH ×2 (07:26→19:57)
[2018-07-08] MEDS: BUDESONIDE 0.5 MG/2 ML INHALATION SUSPENSION INH SCH ×2 (07:26→19:57)
[2018-07-08] MEDS: SODIUM CHLORIDE HYPERTONIC 3% 15ML NEB SOL INH SCH ×3 (07:26→23:34)
[2018-07-08] MEDS: TIOTROPIUM INHALER/CAPSULE (SPIRIVA) INH SCH (07:26)
[2018-07-08] MEDS: ENOXAPARIN 40 MG/0.4 ML SYRINGE (J1650) SC SCH (08:08)
[2018-07-08] MEDS: guaiFENesin ER 600 MG TAB PO SCH ×2 (08:08→20:05)
[2018-07-08] MEDS: AZITHROMYCIN 250 MG TAB PO SCH (08:08)
[2018-07-08] MEDS: PANTOPRAZOLE 40MG TAB (PROTONIX) PO SCH (08:09)
--- NOTE | 2018-07-08 08:40 | IPNPDOC ---
Subjective Date Seen The patient was seen on 07/08/18. Subjective Chief Complaint/HPI She again had an episode of severe desaturation yesterday around 4:30 pm and had to put back on BiPAP urgently. SHe did sleep a little better and her anxiety seems to be better controlled with xanax. Has been on BIPAP overnight. will give her a break of 6 hours and check ABG this afternoon. No fever or chills, still has trouble coughing out the secretions. At baseline she is bed bound mostly limited by her SOB. Objective Physical Examination General Exam: Positive: Alert, Cooperative, Moderate Distress Eye Exam: Positive: PERRLA, Conjunctiva & lids normal, EOMI; Negative: Sclera icteric ENT Exam: Positive: Atraumatic, Pharynx Normal, Tongue Midline, Nares Patent Neck Exam: Positive: Supple; Negative: JVD, thyromegaly Chest Exam: Positive: Diminished; Negative: Rales, Rhonchi, Wheezing Heart Exam: Positive: Tachycardic, Regular Rhythm, Normal S1, Normal S2; Negative: Murmurs, Rubs Telemetry: Positive: Sinus, Tachycardia Abdomen Exam: Positive: Normal bowel sounds, Soft; Negative: Tenderness, Hepatospenomegaly Extremity Exam: Negative: Clubbing, Cyanosis, Edema Skin Exam: Positive: Nl turgor and temperature; Negative: Breakdown, Lesion Neuro Exam: Positive: Normal Gait, Normal Speech, Strength at 5/5 X4 ext, Normal Tone Psych Exam: Positive: Mental status NL, Oriented x 3 Assessment /Plan Assessment 73-year-old female with a PMHx of COPD with chronic respiratory failure with hypoxia and hypercarbia, Steroid dependent, Grade 1 Diastolic CHF, HTN, Dyslipidemia, Hx of Bladder CA, Hx of Kidney stones, Depression / Anxiety, Neck/Lower back pain, Allergic rhinitis, Vitamin D deficiency, GERD presented to the ED with 3 days history of increased cough, phlegm production and SOB. She had seen her primary care 2 days ago and was started on Z pack and prednisone 40 mg with no improvement. This morning she woke up unable to breathe ans was brought to the ED. Of note her recently last week in our ICU. So she has been in and out of the hospital when he was sick and she thinks that she caught a cold then from somewhere then which made her COPD to be exacerbated. In the ED initial ABG showed CO2 retention. 7.298/91.6. repeat ABG after nebs and steroids showed 7.28/95 so she was started on Noninvassive mechanical ventilation. The patient is being admitted for acute on chronic respiratory failure with hypoxia and hypercarbia due to COPD exacerbation Acute on chronic respiratory failure with hypoxia and hypercarbia will continue with Noninvasive mechanical ventilation ABG had improved after overnight BIPAP then again worsened in the PM. Use BIPAP during naps and at night. Will check ABG at 9pm continue management of COPD will consult pulmonary. COPD exacerbation will continue with formoterol, budesonide, albuterol and duonebs prn. Steroid dose was increased will continue azithromycin will giv hypertonic saline with albuterol nebs, mucinex and Ezpap resp panel negaive. 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 Diastolic CHF seems to be euvolemic to hypovolemic will hold lasix DVT prophylaxis in place. Plan/VTE VTE Prophylaxis Ordered?: Yes VS, I&O, 24H, [facility] Vital Signs/I&O Vital Signs Date Time Temp Pulse Resp B/P (MAP) Pulse Ox O2 Delivery O2 Flow Rate FiO2 07/08/18 07:25 30 07/08/18 06:00 88 93 07/08/18 04:00 97.9 22 154/77 (102) 07/07/18 21:27 3.0 07/07/18 19:59 Nasal Cannula I&O- Last 24 Hours up to 6 AM 07/08/18 06:00 Intake Total 660 ml Output Total 575 ml Balance 85 ml Laboratory Data 24H LABS Laboratory Tests 2 07/07/18 17:28: Blood Gas Bicarbonate Standard 38.9H, Arterial Blood pH 7.355, Arterial Blood Partial Pressure CO2 81.3*H, Arterial Blood Partial Pressure O2 60.4L, Arterial Blood Total CO2 46.9H, Arterial Blood HCO3 44.4H, Arterial Blood Base Excess 15.2H, Arterial Blood Oxygen Saturation 91.1L 07/08/18 04:42: Immature Granulocyte % (Auto) 1.3, White Blood Count 17.7H, Red Blood Count 4.30, Hemoglobin 11.5L, Hematocrit 40.2, Mean Corpuscular Volume 93.5, Mean Corpuscular Hemoglobin 26.7L, Mean Corpuscular Hemoglobin Concent 28.6L, Red Cell Distribution Width 14.1, Platelet Count 392, Neutrophils (%) (Auto) 93.6H, Lymphocytes (%) (Auto) 2.5L, Monocytes (%) (Auto) 2.5, Eosinophils (%) (Auto) 0.0, Basophils (%) (Auto) 0.1, Neutrophils # (Auto) 16.5H, Lymphocytes # (Auto) 0.5L, Monocytes # (Auto) 0.5, Eosinophils # (Auto) 0.0, Basophils # (Auto) 0.0, Nucleated Red Blood Cells % (auto) 0.0, Anion Gap 0L, Glomerular Filtration Rate > 60.0, Blood Urea Nitrogen 30H, Creatinine 0.83, Sodium Level 142, Potassium Level 4.7, Chloride Level 97L, Carbon Dioxide Level 45H, Calcium Level 9.0 CBC/BMP Laboratory Tests 07/08/18 04:42 Red Blood Count 4.30, Mean Corpuscular Volume 93.5, Mean Corpuscular Hemoglobin 26.7 L, Mean Corpuscular Hemoglobin Concent 28.6 L, Red Cell Distribution Width 14.1, Neutrophils (%) (Auto) 93.6 H, Lymphocytes (%) (Auto) 2.5 L, Monocytes (%) (Auto) 2.5, Eosinophils (%) (Auto) 0.0, Basophils (%) (Auto) 0.1, Neutrophils # (Auto) 16.5 H, Lymphocytes # (Auto) 0.5 L, Monocytes # (Auto) 0.5, Eosinophils # (Auto) 0.0, Basophils # (Auto) 0.0, Calcium Level 9.0 Microbiology Microbiology 07/05/18 Blood Culture - Preliminary, Resulted No Growth after 48 hours. All Specime... 07/05/18 Respiratory Virus Panel (PCR) ([facility]) - Final, Complete PAYAL CHATMAN MD July 08, 2018 08:40
--- NOTE | 2018-07-08 10:46 | IPN ---
DATE OF VISIT: 07/08/2018 TIME OF VISIT: 0910 hours PULMONARY CRITICAL CARE PROGRESS NOTE: I again attended Ellie Domingo here in the intensive care unit. She remains on and off noninvasive positive pressure ventilatory support. Dyspneic when off. Maximum temperature (Tmax) overnight 98.4, blood pressure 120-150 systolic, heart rate 80-90s with occasionally in the low 100s but always a sinus mechanism. Respiratory rate generally 20-24. Pursed lip breathing with any activity. Intake and output from midnight to midnight 640 mL in with 750 mL out. Laboratories this morning show white blood cell count 17.7, hemoglobin 11.5, and platelet count 392,000, 93.6% segs, no bands. Sodium 142, potassium 4.7, chloride 97, CO2 of 45, BUN 30, creatinine 0.83. Blood gas done yesterday at 1728 hours, not documented whether this was on noninvasive or nasal cannula shows a pH 7.355, pCO2 81.3, pO2 60.4. No new imaging today. On exam, she is currently off noninvasive support, dyspneic even with conversation, but is awake, alert and appropriate. Vitals as outlined above. HEENT: Otherwise, generally normocephalic, atraumatic. Pupils do react. Neck with diminished mobility. Trachea is in the midline. Chest shows diminished but symmetric expansion with some faint some crackles. There are some rhonchi that do not completely clear with cough. Expansion markedly diminished but symmetric. No other focal adventitious breath sounds are identified. Cardiac exam generally regular. Peripheral pulses palpable. No evidence of edema. Abdomen: Soft , nontender with active bowel sounds. No convincing organomegaly or masses. Extremities: Without cyanosis or clubbing. Neurologically, she is awake, alert and appropriate. Psychiatric: Generally is with normal mood and affect. IMPRESSION: 1. Acute on chronic respiratory failure both hypoxemic and hypercapnic. 2. Advanced/end-stage obstructive lung disease with exacerbation. 3. DO NOT RESUSCITATE. 4. Previous tobacco history. RECOMMENDATIONS: At this point, she remains a trial of intubation on her MOLST form. I had a long discussion in that regard with her. My concern is she is debilitated to the point where she cannot even get out bed without being markedly dyspneic and certainly taking over all of the work of breathing for her with intubation mechanical ventilatory support will not aid in making that any better. I did discuss this with her. For now, I would suggest continue to try extended periods off noninvasive at tolerated. She will talk to her family more about her intubation status. We had an EzPAP and Mucinex yesterday. It does seem to be helping somewhat. We will continue as outlined above. Overall her prognosis guarded at best and there is a very high likelihood she may not survive this hospitalization. Will continue current level of antibiotics, steroids, and pulmonary toilet. Further recommendations will be made in the progress records as new information becomes
[2018-07-08 14:08] LABS: ABG BASE EXCESS 14.8 (-2.0-2.0); ABG HCO3 44.4 MEQ/L (22.0-26.0); ABG O2 SATURATION 89.1 % (95.0-99.0); ABG PARTIAL PRESSURE O2 58.1 mmHg (75.0-100.0); ABG STANDARD HCO3 38.5 MEQ/L (22.0-26.0); ABG pH (ARTERIAL) 7.344 UNITS (7.350-7.450)
[2018-07-08 14:10] LABS: ABG PARTIAL PRESSURE CO2 83.4 mmHg (35.0-45.0)
[2018-07-08] MEDS: LOSARTAN 50 MG TAB PO SCH (20:05)
[2018-07-08] MEDS: ALPRAZolam 0.25 MG TAB PO PRN (21:29)
[2018-07-09] VITALS (8 sets, daily range): BP systolic 132–159; BP diastolic 66–88
[2018-07-09] MEDS: methylPREDNISolone INJ 125 MG/2 ML VIAL (J2930) IV SCH (02:38)
[2018-07-09 04:24] LABS: BASO # 0.1 10^3/uL (0.0-0.2); BASO % 0.5 % (0.0-1.0); HEMATOCRIT 39.6 % (36.0-47.0); HEMOGLOBIN 11.4 g/dl (12.0-15.5); LYMPH # 0.5 10^3/uL (1.5-4.5); LYMPH % 3.1 % (24.0-44.0); MEAN CORPUSCULAR HEMOGLOBIN 27.3 pg (27.0-33.0); MEAN CORPUSCULAR HGB CONC 28.8 g/dl (32.0-36.5); MONO # 0.7 10^3/uL (0.0-0.8); NEUTROPHILS # 14.7 10^3/uL (1.8-7.7); PLATELET COUNT, AUTOMATED 390 10^3/uL (150-450); RED BLOOD COUNT 4.17 10^6/uL (4.00-5.40); WHITE BLOOD COUNT 16.3 10^3/uL (4.0-10.0)
[2018-07-09 04:44] LABS: BLOOD UREA NITROGEN 38 MG/DL (7-18); CALCIUM LEVEL 9.1 MG/DL (8.8-10.2); CARBON DIOXIDE LEVEL 43 MEQ/L (21-32); CHLORIDE LEVEL 98 MEQ/L (98-107); CREATININE FOR GFR 0.76 MG/DL (0.55-1.30); GLOMERULAR FILTRATION RATE > 60.0 (>39); GLUCOSE, FASTING 134 MG/DL (70-100); POTASSIUM SERUM 4.6 MEQ/L (3.5-5.1); SODIUM LEVEL 141 MEQ/L (136-145)
[2018-07-09] MEDS: traMADol 50 MG TAB PO PRN (05:14)
[2018-07-09] MEDS: ALBUTEROL SULFATE 2.5 MG/0.5 ML INH NEB SOLN NEB SCH ×3 (08:00→22:57)
[2018-07-09] MEDS: TIOTROPIUM INHALER/CAPSULE (SPIRIVA) INH SCH (08:08)
[2018-07-09] MEDS: SODIUM CHLORIDE HYPERTONIC 3% 15ML NEB SOL INH SCH ×3 (08:08→22:57)
[2018-07-09] MEDS: BUDESONIDE 0.5 MG/2 ML INHALATION SUSPENSION INH SCH ×2 (08:08→19:29)
[2018-07-09] MEDS: FORMOTEROL FUMARATE 20 MCG/2 ML INHALATION SOLUTION (PERFOROMIST) INH SCH ×2 (08:08→19:29)
[2018-07-09] MEDS: PANTOPRAZOLE 40MG TAB (PROTONIX) PO SCH (08:47)
[2018-07-09] MEDS: guaiFENesin ER 600 MG TAB PO SCH ×2 (08:47→20:03)
[2018-07-09] MEDS: AZITHROMYCIN 250 MG TAB PO SCH (08:47)
[2018-07-09] MEDS: ENOXAPARIN 40 MG/0.4 ML SYRINGE (J1650) SC SCH (08:48)
[2018-07-09] MEDS ORDERED: BISACODYL 10 MG SUPP PR PRN (09:00)
[2018-07-09] MEDS: DOCUSATE SODIUM 100 MG CAP PO SCH ×2 (09:03→20:02)
[2018-07-09] MEDS: methylPREDNISolone INJ 40 MG/1 ML VIAL (J2920) IV SCH ×3 (09:03→20:03)
--- NOTE | 2018-07-09 10:03 | IPNPDOC ---
VS, I&O, 24H, [facility] Vital Signs/I&O Vital Signs Date Time Temp Pulse Resp B/P (MAP) Pulse Ox O2 Delivery O2 Flow Rate FiO2 07/09/18 06:00 88 93 30 07/09/18 05:50 18 07/09/18 05:00 3.0 07/09/18 04:00 97.9 155/87 (109) 07/08/18 23:30 BIPAP/CPAP I&O- Last 24 Hours up to 6 AM 07/09/18 06:00 Intake Total 730 ml Output Total 650 ml Balance 80 ml Laboratory Data 24H LABS Laboratory Tests 2 07/08/18 14:02: Blood Gas Bicarbonate Standard 38.5H, Arterial Blood pH 7.344L, Arterial Blood Partial Pressure CO2 83.4*H, Arterial Blood Partial Pressure O2 58.1L, Arterial Blood Total CO2 47.0H, Arterial Blood HCO3 44.4H, Arterial Blood Base Excess 14.8H, Arterial Blood Oxygen Saturation 89.1L 07/09/18 03:58: Immature Granulocyte % (Auto) 2.4, White Blood Count 16.3H, Red Blood Count 4.17, Hemoglobin 11.4L, Hematocrit 39.6, Mean Corpuscular Volume 95.0, Mean Corpuscular Hemoglobin 27.3, Mean Corpuscular Hemoglobin Concent 28.8L, Red Cell Distribution Width 13.9, Platelet Count 390, Neutrophils (%) (Auto) 90.0H, Lymphocytes (%) (Auto) 3.1L, Monocytes (%) (Auto) 4.0, Eosinophils (%) (Auto) 0.0, Basophils (%) (Auto) 0.5, Neutrophils # (Auto) 14.7H, Lymphocytes # (Auto) 0.5L, Monocytes # (Auto) 0.7, Eosinophils # (Auto) 0.0, Basophils # (Auto) 0.1, Nucleated Red Blood Cells % (auto) 0.0, Anion Gap 0L, Glomerular Filtration Rate > 60.0, Blood Urea Nitrogen 38H, Creatinine 0.76, Sodium Level 141, Potassium Level 4.6, Chloride Level 98, Carbon Dioxide Level 43H, Calcium Level 9.1 CBC/BMP Laboratory Tests 07/09/18 03:58 Red Blood Count 4.17, Mean Corpuscular Volume 95.0, Mean Corpuscular Hemoglobin 27.3, Mean Corpuscular Hemoglobin Concent 28.8 L, Red Cell Distribution Width 13.9, Neutrophils (%) (Auto) 90.0 H, Lymphocytes (%) (Auto) 3.1 L, Monocytes (%) (Auto) 4.0, Eosinophils (%) (Auto) 0.0, Basophils (%) (Auto) 0.5, Neutrophils # (Auto) 14.7 H, Lymphocytes # (Auto) 0.5 L, Monocytes # (Auto) 0.7, Eosinophils # (Auto) 0.0, Basophils # (Auto) 0.1, Calcium Level 9.1 Microbiology Microbiology 07/05/18 Blood Culture - Preliminary, Resulted No Growth after 72 hours. All specime... 07/05/18 Respiratory Virus Panel (PCR) ([facility]) - Final, Complete BHAVIN GAN MD July 09, 2018 10:03
--- NOTE | 2018-07-09 10:30 | IPNPDOC ---
Date Seen The patient was seen on 07/09/18. Progress Note Subjective Chief Complaint/HPI 73 Y female, history of COPD, on home O2 supplement, admitted for COPD exacerbation feels a little bit better was on BiPAP overnight no other events overnight Objective Physical Examination General Exam: Positive: Alert, Cooperative, mild respiratory distress Eye Exam: Positive: PERRLA, Conjunctiva & lids normal, EOMI; Negative: Sclera icteric ENT Exam: Positive: Atraumatic, Pharynx Normal, Tongue Midline, Nares Patent Neck Exam: Positive: Supple; Negative: JVD, thyromegaly Chest Exam: Positive: Diminished breath sound Negative: Rales, Rhonchi, Wheezing Heart Exam: Positive: Regular Rhythm, Normal S1, Normal S2; Negative: Murmurs, Rubs Telemetry: Positive: Sinus Abdomen Exam: Positive: Normal bowel sounds, Soft; Negative: Tenderness Extremity Exam: Negative: Clubbing, Cyanosis, Edema Skin Exam: Positive: Nl turgor and temperature; Negative: Breakdown, Lesion Neuro Exam: Positive: Normal Gait, Normal Speech, Strength at 5/5 X4 ext, Normal Tone Psych Exam: Positive: Mental status NL, Oriented x 3 Review of Systems no fever no chills no GUALLPA no chest pain no abdominal pain no diarrhea Assessment /Plan Assessment 73-year-old female with a PMHx of COPD with chronic respiratory failure with hypoxia and hypercarbia, Steroid dependent, Grade 1 Diastolic CHF, HTN, Dyslipidemia, Hx of Bladder CA, Hx of Kidney stones, Depression / Anxiety, Neck/Lower back pain, Allergic rhinitis, Vitamin D deficiency, GERD presented to the ED with 3 days history of increased cough, phlegm production and SOB. She had seen her primary care 2 days ago and was started on Z pack and prednisone 40 mg with no improvement. This morning she woke up unable to breathe ans was brought to the ED. Of note her recently last week in our ICU. So she has been in and out of the hospital when he was sick and she thinks that she caught a cold then from somewhere then which made her COPD to be exacerbated. In the ED initial ABG showed CO2 retention. 7.298/91.6. repeat ABG after nebs and steroids showed 7.28/95 so she was started on Noninvassive mechanical ventilation. The patient is being admitted for acute on chronic respiratory failure with hypoxia and hypercarbia due to COPD exacerbation 1. Acute on chronic respiratory failure with hypoxia and hypercarbia will continue BiPAP as need and will continue O2 supplement 2. COPD exacerbation, no obvious pneumonia per Chest x ray will tapering IV steroid, Abx and Nebs appreciated Pul input 3.Protein calorie malnutrition, due to pulmonary cachexia from end stage COPD will encourage oral intake 4. Chronic diastolic CHF, compensated and Lasix was on hold due to hypovolemic 5. DVT prophylaxis via Lovenox sc 6. Dispo: family is thinking to take her home with Hospice. A-FIB/CHADSVASC A-FIB History Current/History of A-Fib/PAF?: No Current Oral Anticoagulant The: No (no history of afib) VS, I&O, 24H, [facility] Vital Signs/I&O Vital Signs Date Time Temp Pulse Resp B/P (MAP) Pulse Ox O2 Delivery O2 Flow Rate FiO2 07/09/18 06:00 88 93 30 07/09/18 05:50 18 07/09/18 05:00 3.0 07/09/18 04:00 97.9 155/87 (109) 07/08/18 23:30 BIPAP/CPAP I&O- Last 24 Hours up to 6 AM 07/09/18 06:00 Intake Total 730 ml Output Total 650 ml Balance 80 ml Laboratory Data 24H LABS Laboratory Tests 2 07/08/18 14:02: Blood Gas Bicarbonate Standard 38.5H, Arterial Blood pH 7.344L, Arterial Blood Partial Pressure CO2 83.4*H, Arterial Blood Partial Pressure O2 58.1L, Arterial Blood Total CO2 47.0H, Arterial Blood HCO3 44.4H, Arterial Blood Base Excess 14.8H, Arterial Blood Oxygen Saturation 89.1L 07/09/18 03:58: Immature Granulocyte % (Auto) 2.4, White Blood Count 16.3H, Red Blood Count 4.17, Hemoglobin 11.4L, Hematocrit 39.6, Mean Corpuscular Volume 95.0, Mean Corpuscular Hemoglobin 27.3, Mean Corpuscular Hemoglobin Concent 28.8L, Red Cell Distribution Width 13.9, Platelet Count 390, Neutrophils (%) (Auto) 90.0H, Ly mphocytes (%) (Auto) 3.1L, Monocytes (%) (Auto) 4.0, Eosinophils (%) (Auto) 0.0, Basophils (%) (Auto) 0.5, Neutrophils # (Auto) 14.7H, Lymphocytes # (Auto) 0.5L, Monocytes # (Auto) 0.7, Eosinophils # (Auto) 0.0, Basophils # (Auto) 0.1, Nucleated Red Blood Cells % (auto) 0.0, Anion Gap 0L, Glomerular Filtration Rate > 60.0, Blood Urea Nitrogen 38H, Creatinine 0.76, Sodium Level 141, Potassium Level 4.6, Chloride Level 98, Carbon Dioxide Level 43H, Calcium Level 9.1 CBC/BMP Laboratory Tests 07/09/18 03:58 Red Blood Count 4.17, Mean Corpuscular Volume 95.0, Mean Corpuscular Hemoglobin 27.3, Mean Corpuscular Hemoglobin Concent 28.8 L, Red Cell Distribution Width 13.9, Neutrophils (%) (Auto) 90.0 H, Lymphocytes (%) (Auto) 3.1 L, Monocytes (%) (Auto) 4.0, Eosinophils (%) (Auto) 0.0, Basophils (%) (Auto) 0.5, Neutrophils # (Auto) 14.7 H, Lymphocytes # (Auto) 0.5 L, Monocytes # (Auto) 0.7, Eosinophils # (Auto) 0.0, Basophils # (Auto) 0.1, Calcium Level 9.1 Microbiology Microbiology 07/05/18 Blood Culture - Preliminary, Resulted No Growth after 72 hours. All specime... 07/05/18 Respiratory Virus Panel (PCR) ([facility]) - Final, Complete BHAVIN GAN MD July 09, 2018 10:30
[2018-07-09] MEDS: LOSARTAN 50 MG TAB PO SCH (20:03)
[2018-07-10] VITALS (10 sets, daily range): BP systolic 137–172; BP diastolic 72–91; O2SAT 93
[2018-07-10] MEDS: methylPREDNISolone INJ 40 MG/1 ML VIAL (J2920) IV SCH (03:34)
[2018-07-10 04:57] LABS: BASO # 0.1 10^3/uL (0.0-0.2); BASO % 0.5 % (0.0-1.0); HEMATOCRIT 41.8 % (36.0-47.0); LYMPH # 0.8 10^3/uL (1.5-4.5); LYMPH % 4.8 % (24.0-44.0); MEAN CORPUSCULAR HEMOGLOBIN 26.8 pg (27.0-33.0); MEAN CORPUSCULAR HGB CONC 28.7 g/dl (32.0-36.5); MEAN CORPUSCULAR VOLUME 93.3 fl (80.0-96.0); MONO # 1.2 10^3/uL (0.0-0.8); MONO % 6.7 % (0.0-5.0); NEUTROPHILS # 14.3 10^3/uL (1.8-7.7); NEUTROPHILS % 83.7 % (36.0-66.0); PLATELET COUNT, AUTOMATED 419 10^3/uL (150-450); RED BLOOD COUNT 4.48 10^6/uL (4.00-5.40); WHITE BLOOD COUNT 17.1 10^3/uL (4.0-10.0)
[2018-07-10 05:35] LABS: BLOOD UREA NITROGEN 35 MG/DL (7-18); CALCIUM LEVEL 9.3 MG/DL (8.8-10.2); CARBON DIOXIDE LEVEL 42 MEQ/L (21-32); CHLORIDE LEVEL 97 MEQ/L (98-107); GLOMERULAR FILTRATION RATE > 60.0 (>39); GLUCOSE, FASTING 120 MG/DL (70-100); POTASSIUM SERUM 4.7 MEQ/L (3.5-5.1); SODIUM LEVEL 141 MEQ/L (136-145)
[2018-07-10] MEDS: SODIUM CHLORIDE HYPERTONIC 3% 15ML NEB SOL INH SCH ×3 (07:25→23:35)
[2018-07-10] MEDS: BUDESONIDE 0.5 MG/2 ML INHALATION SUSPENSION INH SCH ×2 (07:25→19:30)
[2018-07-10] MEDS: TIOTROPIUM INHALER/CAPSULE (SPIRIVA) INH SCH (07:25)
[2018-07-10] MEDS: ALBUTEROL SULFATE 2.5 MG/0.5 ML INH NEB SOLN NEB SCH ×3 (07:25→23:35)
[2018-07-10] MEDS: FORMOTEROL FUMARATE 20 MCG/2 ML INHALATION SOLUTION (PERFOROMIST) INH SCH ×2 (07:25→19:30)
[2018-07-10] MEDS: DOCUSATE SODIUM 100 MG CAP PO SCH ×2 (08:59→21:02)
[2018-07-10] MEDS: LACTULOSE 20 GM/30 ML SYRUP UD PO SCH ×2 (08:59→21:00)
[2018-07-10] MEDS: PANTOPRAZOLE 40MG TAB (PROTONIX) PO SCH (08:59)
[2018-07-10] MEDS: ENOXAPARIN 40 MG/0.4 ML SYRINGE (J1650) SC SCH (08:59)
[2018-07-10] MEDS: guaiFENesin ER 600 MG TAB PO SCH ×2 (08:59→21:02)
--- NOTE | 2018-07-10 09:27 | IPN ---
DATE: 07/10/2018 I attended Ellie Domingo here in the intensive care unit. The patient was examined and chart was reviewed. She is on and off the noninvasive. Takes it off frequently as she says that it hurts her nose. Family is still deciding whether or not to go home with Hospice. Maximum temperature overnight was 98 degrees, blood pressure 130/60's. Heart rate generally 80's to below low-teens, respiratory rate generally in the high teens and low 20's. Intake and output overnight to midnight 480 mL in with 550 mL out. White blood cell count 17.1, hemoglobin 12.0, platelet count 419,000, 83.7% segmented neutrophils, no bands, sodium 141, potassium 4.7, chloride 97, CO2 42, BUN 35, creatinine 0.8. On exam She is a frail elderly female dyspneic with any activity even in bed. Vitals and Mar have been reviewed. Skin normal turgor and no rashes. HEENT is otherwise normocephalic atraumatic. Pupils react. Neck is free to range. Membranes are reasonably moist. Trachea is midline. Chest shows costal muscle wasting. Hyperresonant to percussion. No focal wheeze, rhonchi or rubs today. Heart exam mildly tachycardiac but regular. Peripheral pulses are palpable and trace edema. Abdomen soft and nontender without active bowel sounds. No hepatosplenomegaly or masses. Extremities show no cyanosis or clubbing. Neurologically she is awake, alert and appropriate. IMPRESSION: 1. Acute on chronic respiratory failure both hypoxic and hypercapnic. 2. Essentially end-stage obstructive lung disease. 3. Pulmonary cachexia. 4. DO NOT RESUSCITATE DO NOT INTUBATE RECOMMENDATIONS: At this point family is considered whether to go home with Hospice. They are interested in non-invasive support at home. If she goes home on Hospice then no specific other parameters will need to be measured but if she is not on Hospice then she will need blood gas off of noninvasive support and a nox-ox to be done on just her nasal cannula in her chronic stable state. In preparation for the above I will try her on a tabletop bipap today. I spoke at length with the patient in that regard. We will wean her steroids to oral. We will continue her pulmonary toilet. Also DVT prophylaxis are in place. We will continue her expectorants. At this point we will proceed as outlined above. Her prognosis remains guarded at best in view of here severe debilitation. Further recommendations will be made in the progress records.
--- NOTE | 2018-07-10 10:08 | IPNPDOC ---
Date Seen The patient was seen on 07/10/18. Progress Note Subjective 73 Y female, history of COPD, on home O2 supplement, admitted for COPD exacerbation was on and off BiPAP overnight no other events overnight Objective Physical Examination General Exam: Positive: Alert, Cooperative, mild respiratory distress Eye Exam: Positive: PERRLA, Conjunctiva & lids normal, EOMI; Negative: Sclera icteric ENT Exam: Positive: Atraumatic, Pharynx Normal, Tongue Midline, Nares Patent Neck Exam: Positive: Supple; Negative: JVD, thyromegaly Chest Exam: Positive: Diminished breath sound Negative: Rales, Rhonchi, Wheezing Heart Exam: Positive: Regular Rhythm, Normal S1, Normal S2; Negative: Murmurs, Rubs Telemetry: Positive: Sinus Abdomen Exam: Positive: Normal bowel sounds, Soft; Negative: Tenderness Extremity Exam: Negative: Clubbing, Cyanosis, Edema Skin Exam: Positive: Nl turgor and temperature; Negative: Breakdown, Lesion Neuro Exam: Positive: Normal Gait, Normal Speech, Strength at 5/5 X4 ext, Normal Tone Psych Exam: Positive: Mental status NL, Oriented x 3 Review of Systems no fever no chills no GUALLPA no chest pain no abdominal pain no diarrhea but constipated Assessment /Plan Assessment 73-year-old female with a PMHx of COPD with chronic respiratory failu re with hypoxia and hypercarbia, Steroid dependent, Grade 1 Diastolic CHF, HTN, Dyslipidemia, Hx of Bladder CA, Hx of Kidney stones, Depression / Anxiety, Neck/Lower back pain, Allergic rhinitis, Vitamin D deficiency, GERD presented to the ED with 3 days history of increased cough, phlegm production and SOB. She had seen her primary care 2 days ago and was started on Z pack and prednisone 40 mg with no improvement. This morning she woke up unable to breathe ans was brought to the ED. Of note her recently last week in our ICU. So she has been in and out of the hospital when he was sick and she thinks that she caught a cold then from somewhere then which made her COPD to be exacerbated. In the ED initial ABG showed CO2 retention. 7.298/91.6. repeat ABG after nebs and steroids showed 7.28/95 so she was started on Noninvassive mechanical ventilation. The patient is being admitted for acute on chronic respiratory failure with hypoxia and hypercarbia due to COPD exacerbation 1. Acute on chronic respiratory failure with hypoxia and hypercarbia will continue BiPAP as need and will continue O2 supplement 2. 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 Chronic diastolic CHF, compensated and Lasix was on hold due to hypovolemic 5. DVT prophylaxis via Lovenox sc 6. Constipation: will start lactulose 7. Dispo: family is planing to take her home with Hospice. A-FIB/CHADSVASC A-FIB History Current/History of A-Fib/PAF?: No Current Oral Anticoagulant The: No VS, I&O, 24H, Fishbone Vital Signs/I&O Vital Signs Date Time Temp Pulse Resp B/P (MAP) Pulse Ox O2 Delivery O2 Flow Rate FiO2 07/10/18 08:00 2.0 07/10/18 08:00 97.9 104 20 172/91 (118) 93 07/10/18 07:26 BIPAP/CPAP 30 I&O- Last 24 Hours up to 6 AM 07/10/18 05:59 Intake Total 440 ml Output Total 375 ml Balance 65 ml Laboratory Data 24H LABS Laboratory Tests 2 07/10/18 04:41: Immature Granulocyte % (Auto) 4.3H, White Blood Count 17.1H, Red Blood Count 4.48, Hemoglobin 12.0, Hematocrit 41.8, Mean Corpuscular Volume 93.3, Mean Corpuscular Hemoglobin 26.8L, Mean Corpuscular Hemoglobin Concent 28.7L, Red Cell Distribution Width 13.7, Platelet Count 419, Neutrophils (%) (Auto) 83.7H, Lymphocytes (%) (Auto) 4.8L, Monocytes (%) (Auto) 6.7H, Eosinophils (%) (Auto) 0.0, Basophils (%) (Auto) 0.5, Neutrophils # (Auto) 14.3H, Lymphocytes # (Auto) 0.8L, Monocytes # (Auto) 1.2H, Eosinophils # (Auto) 0.0, Basophils # (Auto) 0.1, Nucleated Red Blood Cells % (auto) 0.0, Anion Gap 2L, Glomerular Filtration Rate > 60.0, Blood Urea Nitrogen 35H, Creatinine 0.80, Sodium Level 141, Potassium Level 4.7, Chloride Level 97L, Carbon Dioxide Level 42H, Calcium Level 9.3 CBC/BMP Laboratory Tests 07/10/18 04:41 Red Blood Count 4.48, Mean Corpuscular Volume 93.3, Mean Corpuscular Hemoglobin 26.8 L, Mean Corpuscular Hemoglobin Concent 28.7 L, Red Cell Distribution Width 13.7, Neutrophils (%) (Auto) 83.7 H, Lymphocytes (%) (Auto) 4.8 L, Monocytes (%) (Auto) 6.7 H, Eosinophils (%) (Auto) 0.0, Basophils (%) (Auto) 0.5, Neutrophils # (Auto) 14.3 H, Lymphocytes # (Auto) 0.8 L, Monocytes # (Auto) 1.2 H, Eosinophils # (Auto) 0.0, Basophils # (Auto) 0.1, Calcium Level 9.3 Microbiology Microbiology 07/05/18 Blood Culture - Final, Complete NO GROWTH AFTER 5 DAYS 07/05/18 Respiratory Virus Panel (PCR) ([facility]) - Final, Complete BHAVIN GAN MD July 10, 2018 10:08
[2018-07-10] MEDS ORDERED: methylPREDNISolone INJ 125 MG/2 ML VIAL (J2930) IV SCH (15:00)
[2018-07-10] MEDS: LOSARTAN 50 MG TAB PO SCH (21:02)
[2018-07-10] MEDS: ALPRAZolam 0.25 MG TAB PO PRN (23:36)
[2018-07-11] VITALS (8 sets, daily range): BP systolic 123–141; BP diastolic 60–75
[2018-07-11] MEDS: traMADol 50 MG TAB PO PRN (04:27)
[2018-07-11 05:24] LABS: BASO # 0.1 10^3/uL (0.0-0.2); BASO % 0.4 % (0.0-1.0); HEMATOCRIT 41.2 % (36.0-47.0); HEMOGLOBIN 11.8 g/dl (12.0-15.5); LYMPH # 1.8 10^3/uL (1.5-4.5); LYMPH % 9.7 % (24.0-44.0); MEAN CORPUSCULAR HEMOGLOBIN 26.5 pg (27.0-33.0); MEAN CORPUSCULAR HGB CONC 28.6 g/dl (32.0-36.5); MEAN CORPUSCULAR VOLUME 92.4 fl (80.0-96.0); MONO # 1.6 10^3/uL (0.0-0.8); MONO % 8.5 % (0.0-5.0); NEUTROPHILS # 14.1 10^3/uL (1.8-7.7); NEUTROPHILS % 77.5 % (36.0-66.0); PLATELET COUNT, AUTOMATED 404 10^3/uL (150-450); RED BLOOD COUNT 4.46 10^6/uL (4.00-5.40); WHITE BLOOD COUNT 18.2 10^3/uL (4.0-10.0)
[2018-07-11 05:44] LABS: BLOOD UREA NITROGEN 33 MG/DL (7-18); CALCIUM LEVEL 8.7 MG/DL (8.8-10.2); CARBON DIOXIDE LEVEL 45 MEQ/L (21-32); CHLORIDE LEVEL 95 MEQ/L (98-107); CREATININE FOR GFR 0.72 MG/DL (0.55-1.30); GLOMERULAR FILTRATION RATE > 60.0 (>39); GLUCOSE, FASTING 86 MG/DL (70-100); POTASSIUM SERUM 4.1 MEQ/L (3.5-5.1); SODIUM LEVEL 142 MEQ/L (136-145)
[2018-07-11] MEDS: TIOTROPIUM INHALER/CAPSULE (SPIRIVA) INH SCH (07:46)
[2018-07-11] MEDS: BUDESONIDE 0.5 MG/2 ML INHALATION SUSPENSION INH SCH ×2 (07:47→19:27)
[2018-07-11] MEDS: FORMOTEROL FUMARATE 20 MCG/2 ML INHALATION SOLUTION (PERFOROMIST) INH SCH ×2 (07:47→19:27)
[2018-07-11] MEDS: SODIUM CHLORIDE HYPERTONIC 3% 15ML NEB SOL INH SCH ×3 (07:47→23:46)
[2018-07-11] MEDS: ALBUTEROL SULFATE 2.5 MG/0.5 ML INH NEB SOLN NEB SCH ×3 (07:47→23:46)
[2018-07-11] MEDS: guaiFENesin ER 600 MG TAB PO SCH ×2 (08:40→20:27)
[2018-07-11] MEDS: PANTOPRAZOLE 40MG TAB (PROTONIX) PO SCH (08:41)
[2018-07-11] MEDS: DOCUSATE SODIUM 100 MG CAP PO SCH ×2 (08:41→20:26)
[2018-07-11] MEDS: predniSONE 20 MG TAB PO SCH (08:41)
[2018-07-11] MEDS: ENOXAPARIN 40 MG/0.4 ML SYRINGE (J1650) SC SCH (08:41)
[2018-07-11] MEDS: LACTULOSE 20 GM/30 ML SYRUP UD PO SCH ×2 (08:57→20:27)
--- NOTE | 2018-07-11 09:27 | IPN ---
DATE: 07/11/2018 TIME OF VISIT: 0840 I again attended Emily Domingo here in the intensive care unit. The patient has been examined and chart was reviewed. I spoke with the nurses as well as family at the bedside. Maximum temperature overnight 98.8, blood pressure 130's systolic. Respiratory rate generally in the upper teens to low 20's. Heart rate in and around 100 with a sinus mechanism. Intake and output midnight to midnight only returned 30 mL in and 525 mL out. White blood cell count 18.2, hemoglobin 11.8, platelet count 404,000, 77% segmented neutrophils, no bands, sodium 142, potassium 4.1, chloride 95, CO2 45, BUN 33, creatinine 0.72, She is awake, alert and appropriate this morning. She was on off with the bipap and tolerated it well. She does breathe easier when she is on it. PHYSICAL EXAM: Shows an elderly female dyspneic with any activity. Vital signs have been reviewed. Skin normal turgor and no obvious rashes. HEENT: Normocephalic. Pupils react. Sclera is clear. Neck with diminished mobility and chest shows markedly diminished breath sound intensity. There is prolongation in the expiratory phase. No focal adventitious breath sounds are identified. Heart exam mildly tachycardiac and regular. Peripheral pulses are palpable trace edema. Abdomen is soft and nontender with active bowel sounds. No hepatosplenomegaly or masses. Extremities without cyanosis or clubbing. Neurologically she is awake, alert and appropriate. Psychiatric, normal mood and affect. IMPRESSION: 1. End-stage obstructive lung disease. 2. Chronic hypoxemic and hypercapnic respiratory failure status-post recent exacerbation. 3. DO NOT RESUSCITATE DO NOT INTUBATE status. RECOMMENDATIONS: I am told that the plan at this point is to go home with Hospice. I would continue the bipap as part of her comfort care. She is clearly much more comfortable with it and I have no problems with this. She is on 12/ with a 4 liter bleed in. I would slowly taper her prednisone over the next 3-4 weeks. She is to finish out her antimicrobials and monitor for DVT prophylaxis, certainly will be discontinued at the time of her discharge. Certainly if they wish I would be more than happy to be the Hospice primary. We await the outcome of the above.
--- NOTE | 2018-07-11 11:43 | IPNPDOC ---
Date Seen The patient was seen on 07/11/18. Progress Note Subjective 73 Y female, history of COPD, on home O2 supplement, admitted for COPD exacerbation was on and off BiPAP overnight she is more awake and more comfortable no other events overnight Objective Physical Examination General Exam: AA Ox3, not in acute respiratory distress; comfortable and family in the room Eye Exam: Positive: PERRLA, Conjunctiva & lids normal, EOMI; Negative: Sclera icteric ENT Exam: Positive: Atraumatic, Pharynx Normal, Tongue Midline, Nares Patent Neck Exam: Positive: Supple; Negative: JVD, thyromegaly Chest Exam: Positive: Diminished breath sound Negative: Rales, Rhonchi, Wheezing Heart Exam: Positive: Regular Rhythm, Normal S1, Normal S2; Negative: Murmurs, Rubs Telemetry: Positive: Sinus Abdomen Exam: Positive: Normal bowel sounds, Soft; Negative: Tenderness Extremity Exam: Negative: Clubbing, Cyanosis, Edema Skin Exam: Positive: Nl turgor and temperature; Negative: Breakdown, Lesion Neuro Exam: Positive: Normal Gait, Normal Speech, Strength at 5/5 X4 ext, Normal Tone Psych Exam: Positive: Mental status NL, Oriented x 3 Review of Systems no fever no chills no GUALLPA no chest pain no abdominal pain no diarrhea but constipated Assessment /Plan Assessment 73-year-old female with a PMHx of COPD with chronic respiratory failure with hypoxia and hypercarbia, Steroid dependent, Grade 1 Diastolic CHF, HTN, Dyslipidemia, Hx of Bladder CA, Hx of Kidney stones, Depression / Anxiety, Neck/Lower back pain, Allergic rhinitis, Vitamin D deficiency, GERD presented to the ED with 3 days history of increased cough, phlegm production and SOB. She had seen her primary care 2 days ago and was started on Z pack and prednisone 40 mg with no improvement. This morning she woke up unable to breathe ans was brought to the ED. Of note her recently last week in our ICU. So she has been in and out of the hospital when he was sick and she thinks that she caught a cold then from somewhere then which made her COPD to be exacerbated. In the ED initial ABG showed CO2 retention. 7.298/91.6. repeat ABG after nebs and steroids showed 7.28/95 so she was [facility]. The patient is being admitted for acute on chronic respiratory failure with hypoxia and hypercarbia due to COPD exacerbation 1. Acute on chronic respiratory failure with hypoxia and hypercarbia will continue BiPAP as need and will continue O2 supplement 2. 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 Chronic diastolic CHF, compensated and Lasix was on hold due to hypovolemic 5. DVT prophylaxis via Lovenox sc 6. Constipation: on lactulose 7. Dispo: plans to discharge home with Hospice tomorrow. A-FIB/CHADSVASC A-FIB History Current/History of A-Fib/PAF?: No Current Oral Anticoagulant The: No VS, I&O, 24H, Fishbone Vital Signs/I&O Vital Signs Date Time Temp Pulse Resp B/P (MAP) Pulse Ox O2 Delivery O2 Flow Rate FiO2 07/11/18 10:00 100 18 123/62 (82) 89 2.0 07/11/18 08:00 98.7 07/10/18 07:26 BIPAP/CPAP 30 I&O- Last 24 Hours up to 6 AM 07/11/18 06:00 Intake Total 390 ml Output Total 625 ml Balance -235 ml Laboratory Data 24H LABS Laboratory Tests 2 07/11/18 04:42: Immature Granulocyte % (Auto) 3.9H, White Blood Count 18.2H, Red Blood Count 4.46, Hemoglobin 11.8L, Hematocrit 41.2, Mean Corpuscular Volume 92.4, Mean Corpuscular Hemoglobin 26.5L, Mean Corpuscular Hemoglobin Concent 28.6L, Red Cell Distribution Width 13.7, Platelet Count 404, Neutrophils (%) (Auto) 77.5H, Lymphocytes (%) (Auto) 9.7L, Monocytes (%) (Auto) 8.5H, Eosinophils (%) (Auto) 0.0, Basophils (%) (Auto) 0.4, Neutrophils # (Auto) 14.1H, Lymphocytes # (Auto) 1.8, Monocytes # (Auto) 1.6H, Eosinophils # (Auto) 0.0, Basophils # (Auto) 0.1, Nucleated Red Blood Cells % (auto) 0.0, Anion Gap 2L, Glomerular Filtration Rate > 60.0, Blood Urea Nitrogen 33H, Creatinine 0.72, Sodium Level 142, Potassium Level 4.1, Chloride Level 95L, Carbon Dioxide Level 45H, Calcium Level 8.7L CBC/BMP Laboratory Tests 07/11/18 04:42 Red Blood Count 4.46, Mean Corpuscular Volume 92.4, Mean Corpuscular Hemoglobin 26.5 L, Mean Corpuscular Hemoglobin Concent 28.6 L, Red Cell Distribution Width 13.7, Neutrophils (%) (Auto) 77.5 H, Lymphocytes (%) (Auto) 9.7 L, Monocytes (%) (Auto) 8.5 H, Eosinophils (%) (Auto) 0.0, Basophils (%) (Auto) 0.4, Neutrophils # (Auto) 14.1 H, Lymphocytes # (Auto) 1.8, Monocytes # (Auto) 1.6 H, Eosinophils # (Auto) 0.0, Basophils # (Auto) 0.1, Calcium Level 8.7 L Microbiology Microbiology 07/05/18 Blood Culture - Final, Complete NO GROWTH AFTER 5 DAYS 07/05/18 Respiratory Virus Panel (PCR) ([facility]) - Final, Complete BHAVIN GAN MD July 11, 2018 11:43
[2018-07-11] MEDS: LOSARTAN 50 MG TAB PO SCH (20:26)
[2018-07-11] MEDS: ALPRAZolam 0.25 MG TAB PO PRN (22:26)
[2018-07-12] VITALS: BP 109/65
[2018-07-12 04:00] VITALS: BP 125/68
[2018-07-12] MEDS: traMADol 50 MG TAB PO PRN (06:26)
[2018-07-12] MEDS ORDERED: PRED20TA PO (07:44)
[2018-07-12] MEDS: SODIUM CHLORIDE HYPERTONIC 3% 15ML NEB SOL INH SCH (07:56)
[2018-07-12] MEDS: TIOTROPIUM INHALER/CAPSULE (SPIRIVA) INH SCH (07:56)
[2018-07-12] MEDS: BUDESONIDE 0.5 MG/2 ML INHALATION SUSPENSION INH SCH (07:56)
[2018-07-12] MEDS: ALBUTEROL SULFATE 2.5 MG/0.5 ML INH NEB SOLN NEB SCH (07:56)
[2018-07-12] MEDS: FORMOTEROL FUMARATE 20 MCG/2 ML INHALATION SOLUTION (PERFOROMIST) INH SCH (07:56)
[2018-07-12 08:00] VITALS: BP 113/62
[2018-07-12] MEDS: predniSONE 20 MG TAB PO SCH (08:50)
[2018-07-12] MEDS: DOCUSATE SODIUM 100 MG CAP PO SCH (08:50)
[2018-07-12] MEDS: ENOXAPARIN 40 MG/0.4 ML SYRINGE (J1650) SC SCH (08:50)
[2018-07-12] MEDS: LACTULOSE 20 GM/30 ML SYRUP UD PO SCH (08:51)
[2018-07-12] MEDS: PANTOPRAZOLE 40MG TAB (PROTONIX) PO SCH (08:51)
[2018-07-12] MEDS: guaiFENesin ER 600 MG TAB PO SCH (08:51)
[2018-07-12 09:56] LABS: BASO # 0.1 10^3/uL (0.0-0.2); BASO % 0.3 % (0.0-1.0); EOS # 0.1 10^3/uL (0.0-0.50); EOS % 0.6 % (0.0-3.0); HEMATOCRIT 39.5 % (36.0-47.0); HEMOGLOBIN 11.3 g/dl (12.0-15.5); LYMPH # 2.6 10^3/uL (1.5-4.5); MEAN CORPUSCULAR HEMOGLOBIN 26.8 pg (27.0-33.0); MEAN CORPUSCULAR HGB CONC 28.6 g/dl (32.0-36.5); MEAN CORPUSCULAR VOLUME 93.6 fl (80.0-96.0); MONO # 1.8 10^3/uL (0.0-0.8); MONO % 9.4 % (0.0-5.0); NEUTROPHILS # 13.6 10^3/uL (1.8-7.7); NEUTROPHILS % 72.5 % (36.0-66.0); PLATELET COUNT, AUTOMATED 346 10^3/uL (150-450); RED BLOOD COUNT 4.22 10^6/uL (4.00-5.40); WHITE BLOOD COUNT 18.8 10^3/uL (4.0-10.0)
[2018-07-12 10:27] LABS: BLOOD UREA NITROGEN 29 MG/DL (7-18); CALCIUM LEVEL 8.7 MG/DL (8.8-10.2); CARBON DIOXIDE LEVEL 45 MEQ/L (21-32); CHLORIDE LEVEL 93 MEQ/L (98-107); CREATININE FOR GFR 0.83 MG/DL (0.55-1.30); GLOMERULAR FILTRATION RATE > 60.0 (>39); GLUCOSE, FASTING 137 MG/DL (70-100); POTASSIUM SERUM 3.3 MEQ/L (3.5-5.1); SODIUM LEVEL 139 MEQ/L (136-145)
--- NOTE | 2018-07-12 16:43 | DS.PDOC ---
Discharge Summary General Date of Admission July 05, 2018 at 13:15 Date of Discharge July 12, 2018 Primary Care Physician: RUDDY SHAW MD Attending Physician: BHAVIN GAN MD Specialist/Consultants Involve: Tanvir Santos Discharge Summary PROCEDURES PERFORMED DURING STAY: none ADMITTING DIAGNOSES: 1. acute on chronic respiratory failure 2. COPD exacerbation DISCHARGE DIAGNOSES: acute on chronic respiratory failure COPD exacerbation COMPLICATIONS/CHIEF COMPLAINT: Acute Or Chronic Respiratory Failure W/Hypoxia. HISTORY OF PRESENT ILLNESS: 73-year-old female with a PMHx of COPD with chronic respiratory failure with hypoxia and hypercarbia, Steroid dependent, Grade 1 Diastolic CHF, HTN, Dyslipidemia, Hx of Bladder CA, Hx of Kidney stones, Depression / Anxiety, Neck/Lower back pain, Allergic rhinitis, Vitamin D deficiency, GERD presented to the ED with 3 days history of increased cough, phlegm production and SOB. She had seen her primary care 2 days ago and was started on Z pack and prednisone 40 mg with no improvement. This morning she woke up unable to breathe ans was brought to the ED. Of note her recently last week in our ICU. So she has been in and out of the hospital when he was sick and she thinks that she caught a cold then from somewhere then which made her COPD to be exacerbated. In the ED initial ABG showed CO2 retention. 7.298/91.6. repeat ABG after nebs and steroids showed 7.28/95 so she was started on Noninvassive mechanical ventillation. The pateint is being admitted for acute on chronic respiratory failure with hypoxia and hypercarbia due to COPD exacerbation HOSPITAL COURSE: She was admitted on 07/04. she was consulted with Pul Dr Santos. she was treated with IV steroid, abx and nebs. she was treated using biPAP. due to poor prognosis; family and patient elected to go home with hospice. on discharge, she is medically stable and will go home with hospice. she was also arranged for BiPAP at home per Dr Santos. DISCHARGE MEDICATIONS: Please see below. ALLERGIES: Please see below. PHYSICAL EXAMINATION ON DISCHARGE: VITAL SIGNS: Please see below. GENERAL: AA Ox3 HEENT: atraumatic NECK: no JCD CARDIOVASCULAR EXAMINATION: S1S2 regular RESPIRATORY EXAMINATION:diminished breath sound ABDOMINAL EXAMINATION:soft BS + EXTREMITIES:no edema SKIN: no rash NEUROLOGICAL EXAMINATION: non focal PSYCHIATRIC EXAMINATION: no acute psychosis LABORATORY DATA: Please see below. IMAGING: chest x ray PROGNOSIS: guarded ACTIVITY: as tolerated DIET: regular DISPOSITION: 50 [facility]osp[facility] Home. DISCHARGE CONDITION: stable TIME SPENT ON DISCHARGE: Greater than 35 minutes. Vital Signs/I&Os Vital Signs Date Time Temp Pulse Resp B/P (MAP) Pulse Ox O2 Delivery O2 Flow Rate FiO2 07/12/18 08:00 99.3 85 19 113/62 (79) 100 2.0 07/10/18 07:26 BIPAP/CPAP 30 I&O- Last 24 Hours up to 6 AM 07/12/18 06:00 Intake Total 1160 ml Output Total 700 ml Balance 460 ml Laboratory Data Labs 24H Laboratory Tests 2 07/12/18 09:44: Immature Granulocyte % (Auto) 3.2H, White Blood Count 18.8H, Red Blood Count 4.22, Hemoglobin 11.3L, Hematocrit 39.5, Mean Corpuscular Volume 93.6, Mean Corpuscular Hemoglobin 26.8L, Mean Corpuscular Hemoglobin Concent 28.6L, Red Cell Distribution Width 14.1, Platelet Count 346, Neutrophils (%) (Auto) 72.5H, Lymphocytes (%) (Auto) 14.0L, Monocytes (%) (Auto) 9.4H, Eosinophils (%) (Auto) 0.6, Basophils (%) (Auto) 0.3, Neutrophils # (Auto) 13.6H, Lymphocytes # (Auto) 2.6, Monocytes # (Auto) 1.8H, Eosinophils # (Auto) 0.1, Basophils # (Auto) 0.1, Nucleated Red Blood Cells % (auto) 0.0, Anion Gap 1L, Glomerular Filtration Rate > 60.0, Blood Urea Nitrogen 29H, Creatinine 0.83, Sodium Level 139, Potassium Level 3.3L, Chloride Level 93L, Carbon Dioxide Level 45H, Calcium Level 8.7L CBC/BMP Laboratory Tests 07/12/18 09:44 Red Blood Count 4.22, Mean Corpuscular Volume 93.6, Mean Corpuscular Hemoglobin 26.8 L, Mean Corpuscular Hemoglobin Concent 28.6 L, Red Cell Distribution Width 14.1, Neutrophils (%) (Auto) 72.5 H, Lymphocytes (%) (Auto) 14.0 L, Monocytes (%) (Auto) 9.4 H, Eosinophils (%) (Auto) 0.6, Basophils (%) (Auto) 0.3, Neutrophils # (Auto) 13.6 H, Lymphocytes # (Auto) 2.6, Monocytes # (Auto) 1.8 H, Eosinophils # (Auto) 0.1, Basophils # (Auto) 0.1, Calcium Level 8.7 L Microbiology Microbiology 07/05/18 Blood Culture - Final, Complete NO GROWTH AFTER 5 DAYS 07/05/18 Respiratory Virus Panel (PCR) ([facility]) - Final, Complete Discharge Medications Scheduled Budesonide/Formoterol (Symbicort 160-4.5 Mcg Inhaler) 60 Puff/Inhaler Aers, 2 PUFF INH BID, (Reported) Pantoprazole Sodium (Pantoprazole Sodium) 40 Mg Tab, 40 MG PO DAILY, (Reported) Prednisone (Prednisone) 20 Mg Tablet, 10 MG PO DAILY 30 mg daily for 5 days then 20 mg daily for 5 days then 10 mg daily for 5 days then stop Roflumilast (Daliresp) 500 Mcg Tab, 500 MCG PO DAILY, (Reported) Tiotropium [place] (Spiriva) 18 Mcg Cap.w.dev, 1 INHALATION INH DAILY, (Reported) PATIENT STATES SHE HASN'T USED IN QUITE A WHILE. Scheduled PRN Acetaminophen (Acetaminophen) 500 Mg Tab, 1,000 MG PO Q6H PRN for PAIN, (Reported) Albuterol Sulfate (Proair Hfa) 108 Mcg/Act Aer, 2 PUFF INH Q4H PRN for SHORTNESS OF BREATH, (Reported) Alprazolam (Alprazolam) 0.25 Mg Tab, 0.25 MG PO TID PRN for ANXIETY, (Reported) Diclofenac Sodium (Diclofenac Sodium) 1% 100GM Gel..gram., 1 DOSE TOP Q6H PRN for PAIN, (Reported) APPLY TO LEFT SHOULDER Diphenhydramine HCl (Benadryl) 25 Mg Cap, 25 MG PO Q4H PRN for RUNNY NOSE, (Reported) Furosemide (Furosemide) 20 Mg Tablet, 20 MG PO DAILY PRN for SWELLING, (Reported) Ondansetron HCl (Ondansetron HCl) 4 Mg Tab, 4 MG PO Q4H PRN for NAUSEA OR VOMITING, (Reported) Tramadol HCl (Tramadol HCl) 50 Mg Tab, 50 MG PO Q4H PRN for PAIN, (Reported) Allergies Coded Allergies: METALS (Verified Allergy, Intermediate, RASH, 05/07/07) bupropion (Verified Allergy, Intermediate, RASH, 07/05/18) morphine (Verified Allergy, Intermediate, H/A, PAIN, DIFFICULTY BREATHING, 07/05/18) codeine (Verified Adverse Reaction, Intermediate, HEADACHE AND PAIN, 07/05/18) albuterol (Verified Adverse Reaction, Mild, SHAKING, 07/05/18) moxifloxacin (Verified Adverse Reaction, Mild, VOMITING - CAN TAKE L EVAQUIN, 07/05/18) oxycodone (Verified Adverse Reaction, Mild, UPSET STOMACH, 07/05/18) hydrocodone (Verified Adverse Reaction, Unknown, 07/05/18) BHAVIN GAN MD July 12, 2018 16:43
== END 2018-07-12 11:30 | disposition hospice, home (50) | DRG 189 ==
LOC: M ED 08:54 → M ED INP 13:15 → M ICU 15:31
PROVIDERS: ADMIT Internal Medicine Nephrology; ATTEND Hospitalist
DX: J96.22 Acute and chronic respiratory failure with hypercapnia (principal); J44.1 Chronic obstructive pulmonary disease with (acute) exacerbation; E46 Unspecified protein-calorie malnutrition; R64 Cachexia; I50.32 Chronic diastolic (congestive) heart failure; Z68.1 Body mass index [BMI] 19.9 or less, adult; J96.21 Acute and chronic respiratory failure with hypoxia; I11.0 Hypertensive heart disease with heart failure; Z79.52 Long term (current) use of systemic steroids; E55.9 Vitamin D deficiency, unspecified; K21.9 Gastro-esophageal reflux disease without esophagitis; F41.9 Anxiety disorder, unspecified; F32.9 Major depressive disorder, single episode, unspecified; Z85.51 Personal history of malignant neoplasm of bladder; E78.5 Hyperlipidemia, unspecified; Z79.899 Other long term (current) drug therapy; Z88.5 Allergy status to narcotic agent; Z88.8 Allergy status to other drugs, medicaments and biological substances; Z87.891 Personal history of nicotine dependence; Z66 Do not resuscitate